=== PATIENT | female | born 1960 | race Caucasian/White ===

== ENCOUNTER 2019-03-28 13:04 | Outpatient (CLI) | payer OTHER, SELFPAY ==
--- NOTE | 2019-03-28 13:13 | XR_ITS ---
WS: [id number] RIGHT ELBOW: 3 VIEW(S) TECHNIQUE: AP, oblique and lateral. HISTORY: RIGHT ELBOW PAIN COMPARISON: 07/26/2012 No acute fractures or dislocation. No joint effusion. No soft tissue abnormality. XR/XR elbow RT min 3V* [id number] IMPRESSION: Normal RIGHT elbow.
== END 2019-03-28 13:05 | disposition home or self-care (01) ==
LOC: RADWPI 13:10
PROVIDERS: Family Provider Family Medicine; PCP Family Medicine; Visit Provider Emergency Medicine
DX: M25.521 Pain in right elbow (principal)
CPT/HCPCS: 73080

== ENCOUNTER 2019-03-31 05:48 | Emergency (ER) | payer OTHER, SELFPAY ==
[2019-03-31 05:58] VITALS: BP 110/61; PULSE 72; RESP 14; TEMP 36.6; O2SAT 100; BMI 20.9
[2019-03-31 06:13] VITALS: O2SAT 98
--- NOTE | 2019-03-31 06:14 | XR_ITS ---
WS: [id number] RIGHT ELBOW: 3 VIEW(S) TECHNIQUE: AP, oblique and lateral. HISTORY: fall, pain COMPARISON: None available. Limited evaluation of the elbow due to a known proximal RIGHT humeral fracture. No fracture is appreciated at the elbow. Cannot evaluate for joint effusion without acute lateral pro jection. No soft tissue abnormality. XR/XR elbow RT min 3V* [id number] IMPRESSION: 1. Limited radiographic positioning due to proximal humeral fracture. 2. No RIGHT elbow fracture or joint effusion is appreciated.
--- NOTE | 2019-03-31 06:14 | XR_ITS ---
WS: [id number] RIGHT HUMERUS: 2 VIEW(S) TECHNIQUE: AP and lateral. HISTORY: fall COMPARISON: None available. Comminuted fracture involving the proximal RIGHT humeral diaphysis. There is slight impaction but no significant separation. Numerous fracture lines are evident. No displacement of the humeral head from the glenoid. Mild AC joint and glenohumeral joint narrowing. No foreign bodies and visualized upper thorax is unremarkable. XR/[place] [id number] IMPRESSION: Comminuted minimally impacted fracture involving the proximal RIGHT humeral .
[2019-03-31 06:15] VITALS: PULSE 70; RESP 14; O2SAT 99
[2019-03-31 06:20] VITALS: PULSE 69; RESP 14
--- NOTE | 2019-03-31 06:20 | ED_ITS ---
HPI - Fall General: Chief Complaint: Fall Stated Complaint: FALL Time Seen by Provider: 03/31/19 06:13 History of Present Illness: HPI Narrative: 58yo female presents after a fall at home while walking outside. No LOC, no head injury, complaints of pain in the R upper arm and elbow. Associated symptoms-after fall: Denies abdominal pain or chest pain Review of Systems Const: Denies: fever, chills, body aches, change in appetite, fatigue or malaise ENMT: Denies: throat pain, ear pain, nasal discharge or nasal congestion Card: Denies: chest pain, edema, shortness of breath on exertion or shortness of breath when lying down Resp: Denies: shortness of breath, productive cough or non-productive cough GI: Denies: abdominal pain, nausea, vomiting, vomiting blood, coffee grounds in vomit, diarrhea, constipation, bloating, blood in stool or black tarry stool : Denies: flank pain, difficulty urinating, painful urination, urinary frequency or urinary urgency Skin/Breast: Denies: rash or itching PFSH ED PFSH: Statuses (acute, chronic, etc) shown below reflect problem list status as previously entered and may not be historically accurate Social History Smoking and tobacco status: former smoker Physical Exam Const: COMMON NORMALS: no apparent distress GENERAL APPEARANCE: cooperative and comfortable ORIENTATION/CONSCIOUSNESS: Yes awake, Yes oriented to person, Yes oriented to place and Yes oriented to time HENMT: COMMON NORMALS: normocephalic, head/scalp atraumatic, hearing grossly normal bilaterally, external ears normal, EAC's normal, TM's normal bilaterally, nasal mucous membranes and turbinates normal, moist oral mucous membranes and oropharynx normal HEAD & SCALP: normocephalic and atraumatic NOSE: nasal mucous membranes and turbinates normal EXTERNAL EAR: Yes external ears normal EXTERNAL AUDITORY CANAL: EAC's normal TYMPANIC MEMBRANE: TM's normal bilaterally Eye: COMMON NORMALS: PERRL, EOMs intact bilaterally, conjunctivae normal and no scleral icterus CONJUNCTIVA: Yes conjunctivae normal PUPIL: Yes PERRL Neck/C-Spine: COMMON NORMALS: full ROM, no lymphadenopathy, supple and no JVD Lymph: LYMPHATIC: no lymphadenopathy noted and no lymphedema noted Resp: COMMON NORMALS: normal respiratory effort, no retractions, no use of accessory muscles and clear to auscultation bilaterally AUSCULTATION: clear to auscultation bilaterally Cardio: COMMON NORMALS: no JVD, regular rate, regular rhythm and no murmurs RATE: regular rate RHYTHM: regular rhythm GI: COMMON NORMALS: soft to palpation and no hepatosplenomegaly AUSCULTATION: Yes normoactive bowel sounds PALPATION: Yes soft, No tender, No guarding and Yes no hepatosplenomegaly Extremity: COMMON NORMALS: normal capillary refill, no clubbing, cyanosis or edema, no calf tenderness and no pedal edema; negative for normal to inspection RIGHT UPPER EXTREMITY: Yes upper arm (Pain and deformity) Neuro: SENSORIUM/ORIENTATION: Yes oriented to person, Yes oriented to place and Yes oriented to time Skin: COMMON NORMALS: no rashes or lesions noted GENERAL SKIN EXAM: no rashes or lesions noted Course ED course: Reviewed findings with patient he has a proximal humerus fracture we will go ahead and discharge her home in a shoulder immobilizer set up for outpatient Ortho gave her pain medications return if has problems discussed usual course of care for proximal humerus fracture Vital Signs: Vital signs: Vital Signs Temperature 97.9 F 03/31/19 05:58 Pulse Rate 78 03/31/19 08:04 Respiratory Rate 16 03/31/19 08:04 Blood Pressure 103/78 03/31/19 08:04 Pulse Oximetry 99 03/31/19 08:04 Discharge Plan Discharge Patient Disposition: Home, Self-Care Clinical Impression: Fracture, humerus closed Qualifiers: Encounter type: initial encounter Humerus Location: shaft Fracture morphology: comminuted Fracture alignment: nondisplaced Laterality: right Qualified Code(s): S42.354A - Nondisplaced comminuted fracture of shaft of humerus, right arm, initial encounter for closed fracture Condition: Stable Prescriptions: New hydrocodone-acetaminophen 5-325 mg tablet 1 tab PO Q6H PRN (Reason: pain) Qty: 14 RF: 0 No Action nitroglycerin 0.1 mg/hr patch 24 hour 0.5 patch transdermal DAILY RF: 0 methenamine hippurate 1 gram tablet 1 g PO DAILY RF: 0 Duavee 0.45-20 mg tablet 1 tab PO DAILY RF: 0 Discharge Orders: Discharge Order (Routine); Ordered 01/23/20 Ordered By: Jaden Plummer Referrals: Ravi Coronado MD [Primary Care Provider] - Discharge Diet: Usual diet Discharge Activity: Limit activity as instructed Activity Restrictions/Additional Instructions: No use of the right hand. Remain in the shoulder immobilizer until instructed otherwise by orthopedics. Case management will call with referral to Ortho. Discharge Date/Time: 03/31/19 08:05 Coding Level of Care Code ED Workforce Development Program Director for Barbara Mayer
--- NOTE | 2019-03-31 06:39 | XR_ITS ---
WS: [id number] AC joints. Single AP view of the AC joints has been obtained. Very mild narrowing of the AC joints bilaterally. No separation or elevation or subluxation. Patient has a known proximal RIGHT humeral fracture. No weights will be given. [place]R/[place] [id number] IMPRESSION: No AC joint separation on this single AP film.
[2019-03-31] MEDS: HYDROcodone-acetaminophen 5-325 mg Tablet 1 TAB PO (06:58)
[2019-03-31] MEDS: morphine 4 mg/mL SDV 1 mL IM (07:37)
[2019-03-31 08:04] VITALS: BP 103/78; PULSE 78; RESP 16; O2SAT 99
--- NOTE | 2019-03-31 11:46 | DCPLANNER ---
bdc manager had message to schedule a follow up appointment for patient with ortho. bdc manager called the ortho clinic, spoke with Melania, gave clinic patients information. bdc manager was told that patients information would be printed and reviewed. Clinic will call ed case manager and patient with appointment information.
--- NOTE | 2019-04-06 15:04 | DCPLANNER ---
Patient had a follow up appointment scheduled for 04.06.19, patient did attend the appointment.
== END 2019-03-31 08:05 | disposition home or self-care (01) ==
PROVIDERS: Emergency Provider Family Medicine; Family Provider Family Medicine; PCP Family Medicine
DX: S42.354A Nondisplaced comminuted fracture of shaft of humerus, right arm, initial encounter for closed fracture (principal); W19.XXXA Unspecified fall, initial encounter; Z87.891 Personal history of nicotine dependence
CPT/HCPCS: 73050; 73060; 73080; 96372; 99281; J2270

== ENCOUNTER → 2019-04-06 15:06 | Outpatient (BNVA) | payer OTHER, SELFPAY | PROVIDERS: Family Provider Family Medicine; PCP Family Medicine; Referring Provider Family Medicine; Visit Provider Specialist | DX: S42.291A Other displaced fracture of upper end of right humerus, initial encounter for closed fracture (principal); X58.XXXA Exposure to other specified factors, initial encounter | CPT/HCPCS: 73030 ==

== ENCOUNTER → 2019-04-14 16:05 | Outpatient (BNVA) | payer OTHER, SELFPAY | PROVIDERS: Family Provider Family Medicine; PCP Family Medicine; Visit Provider Specialist | DX: S42.291A Other displaced fracture of upper end of right humerus, initial encounter for closed fracture (principal); X58.XXXA Exposure to other specified factors, initial encounter | CPT/HCPCS: 73030 ==

== ENCOUNTER → 2019-04-20 15:39 | Outpatient (BNVA) | payer OTHER, SELFPAY | PROVIDERS: Family Provider Family Medicine; PCP Family Medicine; Visit Provider Specialist | DX: S42.352A Displaced comminuted fracture of shaft of humerus, left arm, initial encounter for closed fracture (principal); X58.XXXA Exposure to other specified factors, initial encounter | CPT/HCPCS: 73030 ==

== ENCOUNTER → 2019-05-04 15:35 | Outpatient (BNVA) | payer OTHER, SELFPAY | PROVIDERS: Family Provider Family Medicine; PCP Family Medicine; Visit Provider Specialist | DX: S42.352A Displaced comminuted fracture of shaft of humerus, left arm, initial encounter for closed fracture (principal); X58.XXXA Exposure to other specified factors, initial encounter | CPT/HCPCS: 73030 ==

== ENCOUNTER → 2019-05-30 14:20 | Outpatient (BNVA) | payer OTHER, SELFPAY | PROVIDERS: Family Provider Family Medicine; PCP Family Medicine; Visit Provider Specialist | DX: S42.201A Unspecified fracture of upper end of right humerus, initial encounter for closed fracture (principal); X58.XXXA Exposure to other specified factors, initial encounter | CPT/HCPCS: 73030 ==

== ENCOUNTER 2019-06-02 12:32 | Outpatient (RCR) | payer OTHER, SELFPAY | END 2019-06-07 23:59 | disposition home or self-care (01) | LOC: SPT 12:32 | PROVIDERS: Family Provider Family Medicine; PCP Family Medicine; Referring Provider Specialist; Visit Provider Specialist | DX: S42.301D Unspecified fracture of shaft of humerus, right arm, subsequent encounter for fracture with routine healing (principal); X58.XXXD Exposure to other specified factors, subsequent encounter | CPT/HCPCS: 97110; 97162 ==

== ENCOUNTER 2019-06-08 06:00 | Outpatient (RCR) | payer OTHER, SELFPAY | END 2019-07-07 23:59 | disposition home or self-care (01) | LOC: SPT 06:00 | PROVIDERS: Family Provider Family Medicine; PCP Family Medicine; Referring Provider Specialist; Visit Provider Specialist | DX: S42.301D Unspecified fracture of shaft of humerus, right arm, subsequent encounter for fracture with routine healing (principal); X58.XXXD Exposure to other specified factors, subsequent encounter | CPT/HCPCS: 97110; G0283 ==

== ENCOUNTER → 2019-07-05 11:39 | Outpatient (BNVA) | payer OTHER, SELFPAY | PROVIDERS: Family Provider Family Medicine; PCP Family Medicine; Visit Provider Specialist | DX: T14.8XXA Other injury of unspecified body region, initial encounter (principal); S42.201A Unspecified fracture of upper end of right humerus, initial encounter for closed fracture; X58.XXXA Exposure to other specified factors, initial encounter | CPT/HCPCS: 73030 ==

== ENCOUNTER 2019-07-08 06:00 | Outpatient (RCR) | payer OTHER, SELFPAY | END 2019-08-07 23:59 | disposition home or self-care (01) | LOC: SPT 06:00 | PROVIDERS: Family Provider Family Medicine; PCP Family Medicine; Referring Provider Specialist; Visit Provider Specialist | DX: S42.301D Unspecified fracture of shaft of humerus, right arm, subsequent encounter for fracture with routine healing (principal); X58.XXXD Exposure to other specified factors, subsequent encounter | CPT/HCPCS: 97110 ==

== ENCOUNTER → 2019-07-12 09:24 | Outpatient (BNVA) | payer OTHER, SELFPAY | PROVIDERS: Family Provider Family Medicine; PCP Family Medicine; Visit Provider Urology | DX: N39.0 Urinary tract infection, site not specified (principal); N30.20 Other chronic cystitis without hematuria; N31.9 Neuromuscular dysfunction of bladder, unspecified | CPT/HCPCS: 81001 ==

== ENCOUNTER → 2020-09-19 14:17 | Outpatient (BNVA) | payer OTHER, SELFPAY | PROVIDERS: Family Provider Family Medicine; PCP Family Medicine; Visit Provider Urology | DX: N30.20 Other chronic cystitis without hematuria (principal); N31.9 Neuromuscular dysfunction of bladder, unspecified; R33.9 Retention of urine, unspecified | CPT/HCPCS: 81003 ==

== ENCOUNTER → 2021-09-19 10:58 | Outpatient (BNVA) | payer OTHER, SELFPAY | PROVIDERS: Family Provider Family Medicine; PCP Family Medicine; Visit Provider Nurse Practitioner Family | DX: N30.20 Other chronic cystitis without hematuria (principal); N31.9 Neuromuscular dysfunction of bladder, unspecified; R33.9 Retention of urine, unspecified | CPT/HCPCS: 81003; 87077; 87086; 87186 ==

== ENCOUNTER 2023-01-15 11:13 | Emergency (ER) | payer OTHER, SELFPAY ==
--- NOTE | 2023-01-15 11:15 | XR_ITS ---
WS: [id number] Right knee, 3 views, 01/15/2023 Clinical Data: trauma Comparison: None. Findings: No fractures or dislocations are seen. The joint spaces are normal. The patella is intact. The soft t issues are unremarkable. Impression: Negative right knee. Kellgren-Jude Classification: grade 0 (none): definite absence of x-ray changes of osteoarthritis
--- NOTE | 2023-01-15 11:15 | XR_ITS ---
WS: [id number] Left wrist, 3 views, 01/15/2023 Clinical Data: trauma Comparison: None. Findings: No fractures or dislocations are seen. The carpal bones are intact. There is no soft tissue swelling. The distal radius and ulna are not remarkable. Impression: Negative left wrist.
[2023-01-15 11:18] VITALS: BP 85/55; PULSE 95; RESP 16; TEMP 36.6; O2SAT 98; BMI 22.3
--- NOTE | 2023-01-15 11:51 | ED_ITS ---
HPI - Extremity Problem General: Chief complaint: Extremity Injury, Upper Stated complaint: left wrist, right knee injury Time Seen by Provider: 01/15/23 11:15 Source: patient Mode of arrival: ambulatory History of Present Illness: 62-year-old female who presents emergency room she was going into work yesterday and stumbled landed on an outstretched left hand and her right knee pain. She has some discomfort in both joints. She has been able to bear weight on the knee but is very uncomfortable no previous injury to the knee. She not strike her head did not lose consciousness. MD Complaint: joint pain Onset (ago): day(s) (1) Relieving factors: rest Exacerbating factors: weight bearing and walking Associated symptoms: Deny arthralgias, chest pain, fever(s), myalgias, rash or short of breath Review of Systems Const: Denies: fever(s) Card: Denies: chest pain Resp: Denies: dyspnea GI: Denies: abdominal pain : Denies: dysuria, urinary frequency or urinary urgency Musc: Denies: neck pain or back pain Skin/Breast: Denies: rash PFSH ED PFSH: Medical History Allergic rhinitis due to allergen Displaced comminuted fracture of shaft of humerus, left arm, initial encounter for closed fracture Hyperlipidemia Hypertension Incomplete bladder emptying URI with cough and congestion Surgical History H/O laparoscopy Hx of tonsillectomy Social History Smoking and tobacco/nicotine status: never used tobacco/nicotine Second hand smoke exposure: No Alcohol intake: never Substance/Drug Use: never Adopted: No Caregiver/support person: No Lives independently: No Household members: spouse Marital status: Current occupational status: employed Current gender identity: Female Female Reproductive History: Spontaneous abortions: No Physical Exam Const: GENERAL APPEARANCE: cooperative and comfortable ORIENTATION/CONSCIOUSNESS: Yes awake and Yes oriented to time; not oriented to person and not oriented to place HENMT: COMMON NORMALS: normocephalic, atraumatic and hearing grossly normal bilaterally HEAD & SCALP: normocephalic and atraumatic Extremity: OTHER: No abrasions to the skin of the hand or at the right knee there is no evidence of form 8 no low deep given distal instability or laxity. Neuro: SENSORIUM/ORIENTATION: No oriented to person, No oriented to place and Yes oriented to time Skin: COMMON NORMALS: no rashes or lesions noted GENERAL SKIN EXAM: no rashes or lesions noted Course Vital Signs: Vital signs: Vital Signs Temperature 97.9 F 01/15/23 11:18 Pulse Rate 83 01/15/23 11:58 Respiratory Rate 16 01/15/23 11:58 Blood Pressure 85/63 01/15/23 11:58 Pulse Oximetry 98 01/15/23 11:58 Oxygen Delivery Me thod Room Air 01/15/23 11:58 MDM - Extremity (Nontraumatic) Medical Decision Making No acute fractures. Suspect patient does have a knee sprain the rest seems rather mild is little difficult to assess the knee fully because of discomfort and a mild joint effusion recommend knee immobilizer and crutches patient does not feel like she is coordinated if it uses think she may actually be more likely to fall she prefers just to rest and elevate use ice and anti- inflammatories follow-up with primary care if not improving Medical Records I reviewed the patient's medical records. All radiology interpretation(s) finalized by discharge Discharge Plan Discharge Patient Disposition: Home Clinical Impression: Right knee sprain Condition: Stable Prescriptions: New diclofenac sodium 75 mg tablet,delayed release (DR/EC) 75 mg PO Q12H PRN (Reason: pain) Qty: 20 0RF No Action omega-3 fatty acids 1,000 mg capsule 1,000 mg PO DAILY ascorbic acid (vitamin C) 500 mg capsule PO Prempro 0.625-2.5 mg tablet 1 tab PO DAILY methenamine hippurate 1 gram tablet 1 g PO ONCE Rx Instructions: take 1000mg Vitamin C with each dose of METHENAMINE fluticasone propionate 50 mcg/actuation spray,suspension 1 spray intranasal BID Qty: 16 3RF Rx Instructions: administer into each nostril tramadol 50 mg tablet 50 mg PO BID PRN (Reason: pain) Qty: 60 5RF pregabalin [Lyrica] 25 mg capsule 25 mg PO BID Qty: 60 2RF diphenhydramine HCl [Benadryl] 25 mg capsule 25 mg PO .qhs PRN (Reason: allergy symptoms) Qty: 30 3RF Rx Instructions: 1 or 2 caps at bedtime as needed montelukast 10 mg tablet See Rx Instructions .ROUTE .COMPLEX Qty: 30 2RF Dose Instruction: TAKE 1 TABLET BY MOUTH EVERY DAY Rx Instructions: TAKE 1 TABLET BY MOUTH EVERY DAY Discharge Orders: Discharge ED (Routine); Ordered 01/15/23 Ordered By: Jaden Plummer Referrals: Akin Camilo, [Primary Care Provider] - Discharge Diet: Usual diet Discharge Activity: Increase activity as tolerated Patient Instructions: Opioid Safety, Pain Management Activity Restrictions/Additional Instructions: Thank you for choosing [facility] for your healthcare needs today. Please realize this is an emergency room and that we are providing you with a medical screening exam and this may not be complete and all inclusive of all the testing and or work up that you may need to determine your ailment or severity of your illness. It is very important that you follow up as instructed or that you return to the Emergency Department should you have concerns or if your condition changes or worsens in any way. If not improving follow-up with your primary care doctor to reevaluate if advanced imaging is required. Coding Level of Care Code ED Clothing Room Supervisor for Barbara Mayer
[2023-01-15 11:58] VITALS: BP 85/63; PULSE 83; RESP 16; O2SAT 98
== END 2023-01-15 12:45 | disposition home or self-care (01) ==
PROVIDERS: Emergency Provider Family Medicine; PCP Family Medicine
DX: S83.91XA Sprain of unspecified site of right knee, initial encounter (principal); E78.5 Hyperlipidemia, unspecified; I10 Essential (primary) hypertension; W01.0XXA Fall on same level from slipping, tripping and stumbling without subsequent striking against object, initial encounter
CPT/HCPCS: 73110; 73562; 99284

== ENCOUNTER → 2023-02-12 09:34 | Outpatient (BNVA) | payer OTHER, SELFPAY | PROVIDERS: PCP Family Medicine; Visit Provider Nurse Practitioner | DX: M25.532 Pain in left wrist (principal); M25.561 Pain in right knee; M65.4 Radial styloid tenosynovitis [de Quervain]; M77.8 Other enthesopathies, not elsewhere classified | CPT/HCPCS: 73110; 73560; 73565 ==

== ENCOUNTER 2023-02-12 10:59 | Outpatient (CLI) | payer OTHER, SELFPAY | END 2023-02-12 11:00 | disposition home or self-care (01) | LOC: SPT 11:00 | PROVIDERS: PCP Family Medicine; Visit Provider Nurse Practitioner | DX: Z46.89 Encounter for fitting and adjustment of other specified devices (principal); M25.532 Pain in left wrist; M65.4 Radial styloid tenosynovitis [de Quervain]; M25.561 Pain in right knee; M77.8 Other enthesopathies, not elsewhere classified | CPT/HCPCS: 97760; 99214; L1812; L3809 ==

== ENCOUNTER → 2023-02-23 13:42 | Outpatient (BNVA) | payer OTHER, SELFPAY | PROVIDERS: PCP Family Medicine; Visit Provider Nurse Practitioner | DX: M25.561 Pain in right knee (principal); M65.4 Radial styloid tenosynovitis [de Quervain]; M77.8 Other enthesopathies, not elsewhere classified | CPT/HCPCS: 73110; 73560; 73565; 99214 ==

== ENCOUNTER 2023-06-02 18:17 | Inpatient (IN) | payer MEDICARE, OTHER, SELFPAY ==
[2023-06-02] VITALS (8 sets, daily range): BP systolic 111–130; BP diastolic 61–79; PULSE 65–74; RESP 15–18; TEMP 36.5–36.7; O2SAT 92–98; BMI 24.3
--- NOTE | 2023-06-02 18:18 | XRR_ITS ---
PROCEDURE INFORMATION: Exam: XR Left Hip Exam date and time: 06/02/2023 6:30 PM Age: 63 years old Clinical indication: Injury or trauma; Fall; Blunt trauma (contusions or hematomas); Left; Hip TECHNIQUE: Imaging protocol: Radiologic exam of the left hip. Views: 2 or 3 views hip with pelvis when performed. COMPARISON: MR lumbar spine wo con* [id number] 07/27/2017 2:05 PM FINDINGS: Bones/joints: Comminuted overlapping and angulated intratrochanteric fracture of the left femur. Soft tissues: Unremarkable. XR/XR hip LT 2-3V wo/w pel* [id number] IMPRESSION: Comminuted overlapping and angulated intratrochanteric fracture of the left femur.
--- NOTE | 2023-06-02 18:27 | W.ED.FALL ---
HPI - Fall General: Chief Complaint: Fall Stated Complaint: Fall Time Seen by Provider: 06/02/23 18:18 Source: patient and EMS Mode of arrival: EMS Limitations: no limitations History of Present Illness: 63-year-old female states that she tripped on a rug and fell and struck her left hip. States this happened just prior to arrival states she been having severe pain in the hip unable to stand or ambulate. She denies any other injuries states she did hit her head but denies any headache she denies any neck pain she denies any loss conscious she is not on any blood thinners. Associated symptoms-after fall: Denies abdominal pain, chest pain, headache(s) or neck pain Review of Systems Const: Denies: fever(s), chills, body aches or change in appetite ENMT: Denies: throat pain or dental pain Card: Denies: chest pain Resp: Denies: dyspnea GI: Denies: abdominal pain, nausea, vomiting or diarrhea Musc: Reports: extremity pain; Denies: neck pain or back pain Skin/Breast: Denies: rash Neuro: Denies: headache(s) PFSH ED PFSH: Medical History Tendinitis of forearm Right anterior knee pain De Quervain's disease (tenosynovitis) Tendonitis of wrist, left Hypertension Hyperlipidemia URI with cough and congestion Allergic rhinitis due to allergen Incomplete bladder emptying Displaced comminuted fracture of shaft of humerus, left arm, initial encounter for closed fracture Surgical History Hx of tonsillectomy H/O laparoscopy Social History Smoking and tobacco/nicotine status: never used tobacco/nicotine Second hand smoke exposure: No Alcohol intake: never Substance/Drug Use: never Adopted: No Caregiver/support person: No Lives independently: No Household members: spouse Marital status: Current occupational status: employed Current gender identity: Female Female Reproductive History: Spontaneous abortions: No Physical Exam Const: COMMON NORMALS: no acute distress, patient oriented x3 and healthy appearing HENMT: COMMON NORMALS: normocephalic and atraumatic HEAD & SCALP: normocephalic and atraumatic Eye: COMMON NORMALS: Equal, round and reactive pupils present and EOMs intact bilaterally PUPIL: Yes Equal, round and reactive pupils present Neck/C-Spine: COMMON NORMALS: full ROM and supple CERVICAL SPINE: Yes cervical ROM normal and No Cervical spine tenderness Chest: COMMONS NORMALS: normal inspection of the chest Resp: COMMON NORMALS: normal respiratory effort Cardio: COMMON NORMALS: regular rate, regular rhythm and No murmurs present (Cardio) RATE: regular rate RHYTHM: regular rhythm GI: COMMON NORMALS: Normal to inspection, nondistended, normoactive bowel sounds present, Soft to palpation, non-tender and no masses PALPATION: Yes Soft to palpation Extremity: NARRATIVE EXTREMITY EXAM: tenderness to left hip Neuro: COMMON NORMALS: patient oriented x3, moves all extremities and no focal motor deficits Psych: COMMON NORMALS: mental status grossly normal, Normal thought process present and cooperative THOUGHT PROCESS: Normal thought process present Skin: COMMON NORMALS: no rashes or lesions noted and no wounds GENERAL SKIN EXAM: no rashes or lesions noted Course Vital Signs: Vital signs: Vital Signs Temperature 97.7 F 06/02/23 18:20 Pulse Rate 68 06/02/23 18:20 Respiratory Rate 16 06/02/23 18:20 Blood Pressure 130/79 06/02/23 18:20 Pulse Oximetry 97 06/02/23 18:20 MDM - Fall Medical Decision Making Patient presents here with left hip fracture from a fall no other injuries noted I spoke to hospitalist all orthopedics and will admit. Medical Records I reviewed the patient's medical records. All radiology interpretation(s) finalized by discharge Discharge Plan Discharge Patient Disposition: Admitted As Inpatient Clinical Impression: Closed fracture of left hip, Fall Condition: Stable Prescriptions: No Action omega-3 fatty acids 1,000 mg capsule 1,000 mg PO DAILY ascorbic acid (vitamin C) 500 mg capsule PO Prempro 0.625-2.5 mg tablet 1 tab PO DAILY fluticasone propionate 50 mcg/actuation spray,suspension 1 spray intranasal BID Qty: 16 3RF Rx Instructions: administer into each nostril tramadol 50 mg tablet 50 mg PO BID PRN (Reason: pain) Qty: 60 5RF pregabalin [Lyrica] 25 mg capsule 25 mg PO BID Qty: 60 2RF celecoxib [Celebrex] 100 mg capsule 100 mg PO BID Qty: 60 0RF (DME) left thumb spika See Rx Instructions .Route .MEDSUPPLY Qty: 1 0RF Rx Instructions: As directed (DME) right hinged knee brace See Rx Instructions .Route .MEDSUPPLY Qty: 1 0RF Rx Instructions: As directed diphenhydramine HCl [Benadryl] 25 mg capsule 25 mg PO .qhs PRN (Reason: allergy symptoms) Qty: 30 3RF Rx Instructions: 1 or 2 caps at bedtime as needed montelukast 10 mg tablet See Rx Instructions .ROUTE .COMPLEX Qty: 30 2RF Dose Instruction: TAKE 1 TABLET BY MOUTH EVERY DAY Rx Instructions: TAKE 1 TABLET BY MOUTH EVERY DAY methenamine hippurate 1 gram tablet See Rx Instructions .ROUTE .COMPLEX Qty: 180 3RF Dose Instruction: take one TABLET BY MOUTH TWICE DAILY * take 1000mg of vitamin c with each DOSE of methenamine * Rx Instructions: take one TABLET BY MOUTH TWICE DAILY * take 1000mg of vitamin c with each DOSE of methenamine * diclofenac sodium 75 mg tablet,delayed release (DR/EC) 75 mg PO Q12H PRN (Reason: pain) Qty: 20 0RF Referrals: Akin Camilo DO [Primary Care Provider] - Coding Level of Care Code ED Lead Systems Analyst for Barbara Mayer
--- NOTE | 2023-06-02 18:36 | XRR_ITS ---
PROCEDURE INFORMATION: Exam: XR Chest Exam date and time: 06/02/2023 6:37 PM Age: 63 years old Clinical indication: Injury or trauma; Fall; Blunt trauma (contusions or hematomas) TECHNIQUE: Imaging protocol: Radiologic exam of the chest. Views: 1 view. COMPARISON: CR XR shoulder RT min 2V* [id number] 07/05/2019 11:44 AM FINDINGS: Lungs: Unremarkable. No consolidation. Pleural spaces: Unremarkable. No pleural effusion. No pneumothorax. Heart/Mediastinum: Unremarkable. No cardiomegaly. Bones/joints: Unremarkable. XR/XR chest 1V portable [id number] IMPRESSION: No acute findings.
[2023-06-02] MEDS: ondansetron 2 mg/ML SDV 2 mL 4 MG IVP (18:46)
[2023-06-02] MEDS: HYDROmorphone 1 mg/mL INJ 1 mL IVP ×2 (18:47→20:31)
--- NOTE | 2023-06-02 18:49 | ECG_ITS ---
[facility] Test Date: 2023-06-02 Pat Name: Consuelo Barajas Department: Room: Gender: Female Registered Nurse Obstetrics: : 1960 Requested By: Meagan Erickson Order Number: [id number] Simone MD: Matt Serrano M.D. Measurements Intervals [place] Rate: 69 P: 65 IA: 130 QRS: 74 QRSD: 93 T: 46 QT: 389 QTc: 419 Interpretive Statements SINUS RHYTHM No previous ECG available for comparison Electronically Signed On 06-03-2023 23:48:23 CDT by Matt Serrano M.D. [email or web address]
--- NOTE | 2023-06-02 19:10 | P.HP_ITS ---
Providers/Chief Complaint 2 Primary Care Provider: Akin Camilo DO Chief Complaint: Fall History of Present Illness Consuelo Barajas is a 63 year old female without significant past medical history sustaining a mechanical fall at home. Patient her and son, stating that today she is not sure what happened but endorsing tripping over carpet rug, in the ER she was diagnosed with hip fracture, Dr. Hussein consulted. Patient is not endorsing any history of coronary disease or CHF. She is not diabetic. Independent for daily activities. Patient is stating that her bone scan showed osteopenia but she does not take calcium or vitamin D, Review of Systems 2 Const: Denies: fever(s) Eyes: Denies: change in vision ENMT: Denies: throat pain Card: Denies: chest pain Resp: Denies: dyspnea GI: Denies: abdominal pain : Denies: flank pain Musc: Reports: back pain and joint pain Skin/Breast: Denies: rash Medications/Allergies Home Medications Medication Instructions Recorded Confirmed Last Taken Type ascorbic acid (vitamin C) 500 mg mg PO 04/06/19 02/23/23 Unknown History capsule omega-3 fatty acids 1,000 mg 1,000 mg PO DAILY 07/12/19 02/23/23 Unknown History capsule conj estrogen-medroxyprogesterone 1 tab PO DAILY 09/19/21 02/23/23 Unknown History 0.625 mg-2.5 mg tablet (Prempro) fluticasone propionate 50 1 spray intranasal BID allergies 01/16/22 02/23/23 Unknown Rx mcg/actuation nasal #16 grams spray,suspension diphenhydramine HCl 25 mg capsule 25 mg PO .qhs PRN allergy symptoms 02/27/22 02/23/23 Unknown Rx (Benadryl) #30 caps pregabalin 25 mg capsule (Lyrica) 25 mg PO BID #60 caps 07/07/22 02/23/23 Unknown Rx tramadol 50 mg tablet 50 mg PO BID PRN pain #60 tabs 07/07/22 02/23/23 Unknown Rx montelukast 10 mg tablet See Rx Instructions .Route 10/27/22 02/23/23 Unknown Rx .COMPLEX #30 tabs diclofenac sodium 75 mg 75 mg PO Q12H PRN pain #20 tabs 01/15/23 02/23/23 Unknown Rx tablet,delayed release methenamine hippurate 1 gram tablet See Rx Instructions .Route 02/10/23 02/23/23 Unknown Rx .COMPLEX #180 tabs celecoxib 100 mg capsule (Celebrex) 100 mg PO BID #60 caps 02/12/23 02/23/23 Unknown Rx left thumb spika #1 ea 02/12/23 02/23/23 Unknown Rx right hinged knee brace #1 ea 02/12/23 02/23/23 Unknown Rx Allergies Allergy/AdvReac Type Severity Reaction Status Date / Time No Known Allergies Allergy Verified 02/23/23 14:11 PFSH Acute 2 PFSH: Medical History Tendinitis of forearm Right anterior knee pain De Quervain's disease (tenosynovitis) Tendonitis of wrist, left Hypertension Hyperlipidemia URI with cough and congestion Allergic rhinitis due to allergen Incomplete bladder emptying Displaced comminuted fracture of shaft of humerus, left arm, initial encounter for closed fracture Surgical History Hx of tonsillectomy H/O laparoscopy Social History Smoking and tobacco/nicotine status: never used tobacco/nicotine Second hand smoke exposure: No Alcohol intake: never Substance/Drug Use: never Adopted: No Caregiver/support person: No Lives independently: No Household members: spouse Marital status: Current occupational status: employed Current gender identity: Female Female Reproductive History: Spontaneous abortions: No Vitals/I&O/Wt Last Vital Signs Temp 97.7 F 06/02/23 18:20 Pulse 68 06/02/23 18:20 Resp 16 06/02/23 18:20 BP 130/79 06/02/23 18:20 Pulse Ox 97 06/02/23 18:20 Weight last 48 hrs Weight 73.482 kg Physical Exam 2 Narrative: Patient is laying supine Currently dehydrated Awake and alert No active chest pain or shortness of breath Doing well on room air Hemodynamic stable Nonfocal neuroexam Pleasant cooperative Appears stated age Data 06/02/23 19:08 06/02/23 19:08 A&P Assessment and plan (1) Closed fracture of left hip: (2) Fall: Plan Hip fracture Mechanical fall No syncope No history of coronary disease or CHF Patient is not diabetic Bedrest Palmer catheter placed Continue IV fluids Check UA No need of antibiotics at this point Hemodynamically stable Dr. Bassett consulted N.p.o. at this point DVT prophylaxis: SCDs Opioids along bowel regimen Full code RCRI class I No preoperative cardiac workup is indicated at this point Attestations 2 Medical Necessity Statement*: More than 2 midnights anticipated for management of hip fracture Diagnoses Closed fracture of left hip S72.002A Fall W19.XXXA
[2023-06-02 19:31] LABS: Basophils # 0.1 10^3/uL (0.0-0.1); Basophils % 0.9 %; Eosinophils # 0.2 10^3/uL (0.0-0.8); Eosinophils % 3.6 %; Hematocrit 37.9 % (36-47); Lymphocytes % 29.7 %; Mean Corpuscular HGB Conc 32.7 g/dL (30-55); Mean Corpuscular Hemoglobin 30.2 pg (27-33); Mean Corpuscular Volume 92.4 fl (85-98); Mean Platelet Volume 9.6 fL (7.4-10.4); Monocytes # 0.5 10^3/uL (0.2-0.9); Monocytes % 7.6 %; Neutrophils # 3.86 10^3/uL (1.8-7.7); Neutrophils % 57.9 %; Nucleated Red Blood Cells % 0 %; Platelet Count 227 10^3/cmm (157-399); Red Cell Distribution Width 12.2 % (12.1-15.1); White Blood Count 6.67 10^3/uL (3.29-11.43)
[2023-06-02 19:51] LABS: Alanine Aminotransferase 8 U/L (0-33); Albumin Level 3.9 g/dL (3.5-5.2); Alkaline Phosphatase 93 U/L (35-105); Anion Gap 12.7 (5-19); Aspartate Amino Transferase 15 U/L (0-32); Blood Urea Nitrogen 21 mg/dL (8-23); Calcium 9.2 mg/dL (8.5-10.5); Carbon Dioxide 27 mmol/L (22-29); Chloride 104 mmol/L (98-107); Creatinine Clr Calc Pharmacy 79.5467; Globulin 2.3 g/dL (1.3-4.6); Glomerular Filtration Rate 100.3 mL/min (90-130); Glucose 102 mg/dL (65-115); Osmolality Calculated 293 mOsm/kg (285-295); Potassium 3.7 mmol/L (3.5-5.1); Sodium 140 mmol/L (136-145); Total Bilirubin 0.3 mg/dL (0.15-1.2); Total Protein 6.2 g/dL (6.6-8.7)
[2023-06-02 20:06] LABS: INR 1.01 (0.8-1.2)
[2023-06-02] MEDS: HYDROmorphone 1 mg/mL INJ 1 mL 0.400000000000000022 MG IVP (23:10)
[2023-06-02] MEDS: sodium chloride 0.9% 1,000 ML 75 ML IV (23:14)
[2023-06-03] VITALS (17 sets, daily range): BP systolic 95–121; BP diastolic 49–69; PULSE 71–106; RESP 16–18; TEMP 36.1–37.4; O2SAT 92–99; BMI 24.8
--- NOTE | 2023-06-03 | XR_ITS ---
WS: [id number] Exam: XR hip LT 1V wo/w pel [id number] Date/Time of Exam: 06/03/2023 12:00 AM Reason For Exam: MARCO PICS Intraoperative AP and lateral images of the LEFT hip and parts of the LEFT femur are submitted. The images depict internal fixation involving a comminuted intertrochanteric fracture of the LEFT hip . An impaction screw in long intramedullary roxanne stabilize the fracture. Alignment appears satisfactor y for healing.
[2023-06-03 00:55] LABS: Thyroid Stimulating Hormone 2.18 uIU/mL (0.27-4.20)
[2023-06-03 02:02] LABS: Vitamin B12 256 pg/mL (232-1245)
[2023-06-03 04:56] LABS: Basophils # 0.1 10^3/uL (0.0-0.1); Basophils % 0.6 %; Eosinophils # 0.1 10^3/uL (0.0-0.8); Eosinophils % 1.4 %; Hematocrit 32.3 % (36-47); Lymphocytes # 1.6 10^3/uL (0.8-4.8); Lymphocytes % 17.7 %; Mean Corpuscular HGB Conc 33.7 g/dL (30-55); Mean Corpuscular Hemoglobin 30.5 pg (27-33); Mean Corpuscular Volume 90.5 fl (85-98); Mean Platelet Volume 9.4 fL (7.4-10.4); Monocytes # 0.7 10^3/uL (0.2-0.9); Monocytes % 8.3 %; Neutrophils # 6.28 10^3/uL (1.8-7.7); Neutrophils % 71.8 %; Nucleated Red Blood Cells % 0 %; Platelet Count 190 10^3/cmm (157-399); Red Blood Count 3.57 10^6/uL (3.85-5.65); Red Cell Distribution Width 12.3 % (12.1-15.1); White Blood Count 8.75 10^3/uL (3.29-11.43)
[2023-06-03 05:08] LABS: Chloride 107 mmol/L (98-107); Potassium 4.1 mmol/L (3.5-5.1); Sodium 141 mmol/L (136-145)
[2023-06-03 05:30] LABS: Anion Gap 12.1 (5-19); Blood Urea Nitrogen 20 mg/dL (8-23); Calcium 8.5 mg/dL (8.5-10.5); Carbon Dioxide 26 mmol/L (22-29); Creatinine Clr Calc Pharmacy 82.7997; Glomerular Filtration Rate 123.8 mL/min (90-130); Glucose 113 mg/dL (65-115); Osmolality Calculated 295 mOsm/kg (285-295); Phosphorus 3.1 mg/dL (2.5-4.5)
[2023-06-03] MEDS: HYDROmorphone 1 mg/mL INJ 1 mL 0.400000000000000022 MG IVP (05:59)
[2023-06-03 08:05] LABS: Protein Urine 1+ (Negative); Specific Gravity, Urine 1.025 (1.005-1.030); Urine Appearance Hazy (CLEAR); Urine Color Yellow (Yellow); pH Urine 6 (5-7)
[2023-06-03 08:06] LABS: Add Urine Microscopic? YES; Bilirubin Urine 1+ (Negative); Blood Urine 3+ (Negative); Glucose Urine UA Norm (Normal); Ketones Urine Negative (Negative); Leukocyte Esterase Urine 2+ (Negative); Nitrate Urine Negative (Negative); Transitional Epi Cells Urine 0-4 /hpf; Urobilinogen Urine 1 mg/dL (Negative); WBC Urine 25-40 /hpf (0-5)
[2023-06-03 08:07] LABS: Add Urine Culture? Yes; Bacteria Urine TRACE /hpf; Mucus Urine TRACE /hpf
[2023-06-03] MEDS: cefTRIAXone 1,000 MG in sodium chloride 0.9% (plus) 50 ML 100 MG IV (09:27)
[2023-06-03] MEDS: sennosides-docusate Tablet 1 TAB PO (09:27)
[2023-06-03] MEDS: calcium carb-vit d 600mg/400unit 1 Tablet 1 EACH PO (09:28)
[2023-06-03] MEDS: morphine IR 15 mg Tablet PO (09:36)
[2023-06-03] MEDS: HYDROmorphone 1 mg/mL INJ 1 mL 0.5 MG IVP ×3 (11:03→20:47)
[2023-06-03] MEDS: sodium chloride 0.9% 1,000 ML 75 ML IV (11:49)
--- NOTE | 2023-06-03 13:28 | P.CONIM_ITS ---
Providers/Reason For Consult 2 Consulting Physician/Specialty*: Tere Bassett MD - Orthopedics Reason for Consult*: Left intertrochanteric hip fracture Requesting Physician: Dr. Meagan Erickson Attending Physician: Chandler Spence MD Primary Care Provider: Akin Camilo DO History of Present Illness History of Present Illness Consuelo Barajas is a 63 year old female who fell while at the [employer] last evening. She is not certain whether she tripped over the carpet or if it became irregular when she tripped. She was brought to the emergency department where she was diagnosed with an intertrochanteric hip fracture. She was admitted to hospitalist team, and was made n.p.o. for surgical intervention this morning. Review of Systems 2 Const: Denies: fever(s), chills, body aches or change in appetite Eyes: Denies: change in vision ENMT: Denies: throat pain or dental pain Card: Denies: chest pain Resp: Denies: dyspnea GI: Denies: abdominal pain, nausea, vomiting or diarrhea : Denies: flank pain Musc: Reports: back pain, extremity pain and joint pain; Denies: neck pain Skin/Breast: Denies: rash Neuro: Denies: headache(s) Medications/Allergies Home Medications Medication Instructions Recorded Confirmed Last Taken Type ascorbic acid (vitamin C) 500 mg 1,000 mg PO 1XD 04/06/19 06/03/23 06/02/23 07:00 History capsule omega-3 fatty acids 1,000 mg 1,000 mg PO DAILY 07/12/19 06/03/23 06/02/23 07:00 History capsule conj estrogen-medroxyprogesterone 1 tab PO DAILY 09/19/21 06/03/23 06/02/23 07:00 History 0.625 mg-2.5 mg tablet (Prempro) tramadol 50 mg tablet 50 mg PO BID PRN pain #60 tabs 07/07/22 06/03/23 05/20/23 07:00 Rx methenamine hippurate 1 gram tablet 1 g PO 1XD 06/03/23 06/03/23 06/02/23 07:00 History Allergies Allergy/AdvReac Type Severity Reaction Status Date / Time No Known Allergies Allergy Verified 02/23/23 14:11 Current Medications Generic Name Dose Route Start Last Admin Trade Name Freq PRN Reason Stop Dose Admin Calcium Carbonate 1 each 06/03/23 09:00 06/03/23 09:28 Calcium Carb-Vit D 600mg/400unit 1 Tablet PO 1 each BID GERRI Administration Hydromorphone HCl 0.5 mg 06/03/23 10:40 06/03/23 11:03 Hydromorphone 1 Mg/Ml Inj 1 Ml IVP 0.5 mg Q4H PRN Administration hip pain Sodium Chloride 1,000 mls @ 75 mls/hr 06/02/23 20:55 06/03/23 11:49 Sodium Chloride 0.9% IV 75 mls/hr .[id number] GERRI Administration Ceftriaxone Sodium 1,000 mg/ 50 mls @ 100 mls/hr 06/03/23 09:00 06/03/23 09:27 Sodium Chloride IV 100 mls/hr Q24H GERRI Administration Protocol Senna/Docusate Sodium 1 tab 06/03/23 09:00 06/03/23 09:27 Sennosides-Docusate Tablet PO 1 tab DAILY GERRI Administration PFSH Acute 2 PFSH: Medical History Tendinitis of forearm Right anterior knee pain De Quervain's disease (tenosynovitis) Tendonitis of wrist, left Hypertension Hyperlipidemia URI with cough and congestion Allergic rhinitis due to allergen Incomplete bladder emptying Displaced comminuted fracture of shaft of humerus, left arm, initial encounter for closed fracture Surgical History Hx of tonsillectomy H/O laparoscopy Social History Smoking and tobacco/nicotine status: never used tobacco/nicotine Second hand smoke exposure: No Alcohol intake: never Substance/Drug Use: never Adopted: No Caregiver/support person: No Lives independently: No Household members: spouse Marital status: Current occupational status: employed Current gender identity: Female Female Reproductive History: Spontaneous abortions: No Dietary Habits: Caffeine: Yes Vitals/I&O/Wt Last Vital Signs Temp 98.3 F 06/03/23 11:00 Pulse 79 06/03/23 11:00 Resp 18 03/27/24 11:00 BP 106/65 06/03/23 11:00 Pulse Ox 92 06/03/23 11:00 O2 Del Method Room Air 06/03/23 11:00 06/02/23 06/03/23 06/03/23 22:59 06:59 14:59 Intake Total 0 / 0 943.75 / 943.75 Output Total 550 / 550 Balance -550 / -550 943.75 / 943.75 Weight last 48 hrs Weight 178 lb 3.2 oz Weight 174 lb 8 oz Weight 162 lb Physical Exam 2 Const: COMMON NORMALS: no acute distress, average body habitus, patient oriented x3 and alert GENERAL APPEARANCE: cooperative and comfortable O RIENTATION/CONSCIOUSNESS: Yes awake HENMT: COMMON NORMALS: normocephalic and atraumatic HEAD & SCALP: n ormocephalic and atraumatic Eye: GENERAL EYE: appearance normal, both eyes and all related structures Chest: COMMONS NORMALS: normal inspection of the chest Resp: COMMON NORMALS: normal respiratory effort EFFORT & INSPECTION: Yes able to speak in complete sentences and Yes symmetric chest movement Extremity: LEFT LOWER EXTREMITY: Yes hip joint Left hip: Yes inspection (No significant bruising), Yes ROM (Not evaluated secondary to fracture) and Yes neurovascular exam (Intact distally) Neuro: COMMON NORMALS: patient oriented x3 SENSORIUM/ORIENTATION: Yes alert Psych: COMMON NORMALS: mental status grossly normal APPEARANCE: Yes grossly normal ATTITUDE: Yes calm and Yes engaged ATTENTION/CONCENTRATION: Yes attention grossly intact Skin: COMMON NORMALS: no rashes or lesions noted GENERAL SKIN EXAM: no rashes or lesions noted Urinary Catheter Management: Palmer: Cath Placed During This Visit: yes Reason for Continuing Indwelling Catheter: Perioperative Use in Selected Surgeries Urinary Catheter Date of Insertion: 06/02/23 Urinary Catheter Time of Insertion: 23:30 Data 06/03/23 04:39 06/03/23 04:39 Xray Ortho: My impression: X-rays were obtained yesterday. These images demonstrate there is a subtrochanteric hip fracture extending into the intertrochanteric area as well. This is significantly shortened and comminuted. There is no evidence of cystic or blastic lesions in the area. Findings are consistent with intertrochanteric fracture with subtrochanteric component. A&P Assessment and plan (1) Closed intertrochanteric fracture of left hip: Patient was admitted last evening through the emergency department. She was noted to have a subtrochanteric fracture with intertrochanteric components. She was admitted to the floor under the hospitalist team with plans being made to proceed with open reduction internal fixation with a long gamma trochanteric nail. The patient was seen in her room. Risks and complications were discussed with the patient. Consents were signed, and questions were answered. Qualifiers: Encounter type: initial encounter Fracture alignment: displaced Qualified Code(s): S72.142A - Displaced intertrochanteric fracture of left femur, initial encounter for closed fracture (2) Subtrochanteric fracture of left femur: See above Qualifiers: Encounter type: initial encounter Fracture type: closed Fracture alignment: displaced Qualified Code(s): S72.22XA - Displaced subtrochanteric fracture of left femur, initial encounter for closed fracture Consult Attestations 2 Medical Necessity Statement: Per hospitalist team Coding Level of Care Code Acute Code for [facility] Fwd Diagnoses Closed displaced intertrochanteric fracture of left femur, initial encounter S72.142A Encounter type: initial encounter Fracture alignment: displaced Closed displaced subtrochanteric fracture of left femur, initial encounter S72.22XA Encounter type: initial encounter Fracture type: closed Fracture alignment: displaced
--- NOTE | 2023-06-03 15:21 | P.PN_ITS ---
Subjective 2 Subjective: Patient was seen this morning, her pain is under control denies any fevers, chills, no chest pain Vitals/I&O/Wt Last Vital Signs Temp 98.3 F 06/03/23 11:00 Pulse 79 06/03/23 11:00 Resp 18 06/03/23 11:00 BP 106/65 06/03/23 11:00 Pulse Ox 92 06/03/23 11:00 O2 Del Method Room Air 06/03/23 11:00 06/03/23 06/03/23 06/03/23 06:59 14:59 22:59 Intake Total 0 / 0 943.75 / 943.75 Output Total 550 / 550 Balance -550 / -550 943.75 / 943.75 Weight last 48 hrs Weight 80.83 kg Weight 79.152 kg Weight 73.482 kg Physical Exam 2 Const: COMMON NORMALS: no acute distress and patient oriented x3 Resp: COMMON NORMALS: normal respiratory effort, No retractions, No use of accessory muscles and clear to auscultation bilaterally AUSCULTATION: clear to auscultation bilaterally Cardio: COMMON NORMALS: regular rate, regular rhythm, S1 normal heart sound present and S2 normal heart sound present RATE: regular rate RHYTHM: r egular rhythm HEART SOUNDS: S1 normal heart sound present and S2 normal heart sound present GI: COMMON NORMALS: Normal to inspection, nondistended, normoactive bowel sounds present and non-tender Extremity: COMMON NORMALS: no pedal edema Neuro: COMMON NORMALS: patient oriented x3 Psych: COMMON NORMALS: mental status grossly normal Urinary Catheter Management: Palmer: Cath Placed During This Visit: yes Reason for Continuing Indwelling Catheter: Perioperative Use in Selected Surgeries Urinary Catheter Date of Insertion: 06/02/23 Urinary Catheter Time of Insertion: 23:30 Data 06/03/23 04:39 06/03/23 04:39 A&P Assessment and plan (1) Closed fracture of left hip: (2) Fall: (3) UTI (urinary tract infection): Plan L Hip fracture IMPRESSION: Comminuted overlapping and angulated intratrochanteric fracture of the left femur. Mechanical fall No syncope No history of coronary disease or CHF Patient is not diabetic Bedrest Palmer catheter placed Continue IV fluids Check UA No need of antibiotics at this point Hemodynamically stable Dr. Bassett consulted N.p.o. at this point DVT prophylaxis: SCDs Opioids along bowel regimen UTI, Rocephin Full code RCRI class I No preoperative cardiac workup is indicated at this point Attestations 2 Medical Necessity Statement*: Patient requires hospitalization for hip fracture Diagnoses Closed fracture of left hip S72.002A Fall W19.XXXA UTI (urinary tract infection) N39.0
--- NOTE | 2023-06-03 16:16 | P.ANESASSM_ITS ---
Pre-Anesthetic Assessment Height/Weight: Height 1.8 m Weight 80.83 kg Temp Pulse Resp BP Pulse Ox O2 Del Method 99.3 F 82 16 109/68 93 Room Air 06/03/23 15:29 06/03/23 15:29 06/03/23 15:29 06/03/23 15:29 06/03/23 15:29 06/03/23 15:29 Preop Diagnosis: Left intertrochanteric hip fracture Operation Date: 06/03/23 14:45 Proposed Procedures p Trochanteric Femoral Nail(Left) - Tere Bassett MD Familial anesthetic complications: none Was Beta Dre taken within 24 hours: N/A Was Clonidine taken within 24 hours: N/A Last intake: Intake Last Liquid Date 06/02/23 Last Liquid Time 17:30 Last Solid Date 06/02/23 Last Solid Time 17:30 Social No alcohol and No tobacco Exam alert, oriented x 3, clear to auscultation bilaterally and regular rate & rhythm Airway Mallampati: Class II Dentition: full Anesthetic Plan ASA status: 1 Anesthesia: General Risk of > 500 ml blood loss (7ml/kg in children): No Medications/Allergies Home Medications Medication Instructions Recorded Confirmed Last Taken Type ascorbic acid (vitamin C) 500 mg 1,000 mg PO 1XD 04/06/19 06/03/23 06/02/23 07:00 History capsule omega-3 fatty acids 1,000 mg 1,000 mg PO DAILY 07/12/19 06/03/23 06/02/23 07:00 History capsule conj estrogen-medroxyprogesterone 1 tab PO DAILY 09/19/21 06/03/23 06/02/23 07:00 History 0.625 mg-2.5 mg tablet (Prempro) tramadol 50 mg tablet 50 mg PO BID PRN pain #60 tabs 07/07/22 06/03/23 05/20/23 07:00 Rx methenamine hippurate 1 gram tablet 1 g PO 1XD 06/03/23 06/03/23 06/02/23 07:00 History Allergies Allergy/AdvReac Type Severity Reaction Status Date / Time No Known Allergies Allergy Verified 02/23/23 14:11 Current Medications Generic Name Dose Route Start Last Admin Trade Name Freq PRN Reason Stop Dose Admin Calcium Carbonate 1 each 06/03/23 09:00 06/03/23 09:28 Calcium Carb-Vit D 600mg/400unit 1 Tablet PO 1 each BID GERRI Administration Hydromorphone HCl 0.5 mg 06/03/23 10:40 06/03/23 15:25 Hydromorphone 1 Mg/Ml Inj 1 Ml IVP 0.5 mg Q4H PRN Administration hip pain Sodium Chloride 1,000 mls @ 75 mls/hr 06/02/23 20:55 06/03/23 11:49 Sodium Chloride 0.9% IV 75 mls/hr .[id number] GERRI Administration Ceftriaxone Sodium 1,000 mg/ 50 mls @ 100 mls/hr 06/03/23 09:00 06/03/23 09:27 Sodium Chloride IV 100 mls/hr Q24H GERRI Administration Protocol Senna/Docusate Sodium 1 tab 06/03/23 09:00 06/03/23 09:27 Sennosides-Docusate Tablet PO 1 tab DAILY GERRI Administration PFSH Anesthesia Medical History Tendinitis of forearm Right anterior knee pain De Quervain's disease (tenosynovitis) Tendonitis of wrist, left Hypertension Hyperlipidemia URI with cough and congestion Allergic rhinitis due to allergen Incomplete bladder emptying Displaced comminuted fracture of shaft of humerus, left arm, initial encounter for closed fracture Surgical History Hx of tonsillectomy H/O laparoscopy Social History Smoking and tobacco/nicotine status: never used tobacco/nicotine Second hand smoke exposure: No Alcohol intake: never Substance/Drug Use: never Adopted: No Caregiver/support person: No Lives independently: No Household members: spouse Marital status: Current occupational status: employed Current gender identity: Female Female Reproductive History Spontaneous abortions: No Data Anesthesia 06/03/23 04:39 06/03/23 04:39 Short CBC 06/02/23 06/03/23 Range/Units 19:08 04:39 WBC 6.67 8.75 (3.29-11.43) 10^3/uL Hgb 12.40 10.90 L (11.27-16.99) g/dL Hct 37.9 32.3 L (36-47) % MCV 92.4 90.5 (85-98) fl Plt Count 227 190 (157-399) 10^3/cmm Neut % (Auto) 57.9 71.8 % Neut # (Auto) 3.86 6.28 (1.8-7.7) 10^3/uL BMP 06/02/23 06/03/23 19:08 04:39 Sodium 140 141 Potassium 3.7 4.1 Chloride 104 107 Carbon Dioxide 27 26 BUN 21 20 Creatinine 0.6 0.5 Glucose 102 113 Calcium 9.2 8.5 Liver Function 06/02/23 Range/Units 19:08 Total Bilirubin 0.3 (0.15-1.2) mg/dL AST 15 (0-32) U/L ALT 8 (0-33) U/L Alkaline Phosphatase 93 (35-105) U/L Albumin 3.9 (3.5-5.2) g/dL Urine 06/02/23 06/03/23 Range/Units 05:58 05:58 Urine Color Cancelled Yellow Urine Appearance Cancelled Hazy A Urine pH Cancelled 6 Ur Specific [place] Cancelled 1.025 Urine Protein Cancelled 1+ H Urine Glucose (UA) Cancelled Norm Urine Ketones Cancelled Negative Urine Nitrate Cancelled Negative Urine Bilirubin Cancelled 1+ H Ur Leukocyte Esterase Cancelled 2+ H Urine RBC 5-10 H (0-2) /hpf Urine WBC 25-40 H (0-5) /hpf Coags 06/02/23 19:08 PT 13.70 INR 1.01 Cardiac Studies: 2 No Data to Display
[2023-06-03] MEDS: acetaminophen 1,000 MG/100 ML PIGGYBACK 400 MG IV (16:40)
[2023-06-03] MEDS: sodium chloride 0.9% 1,000 ML 30 ML IV (16:41)
[2023-06-03] MEDS: CELEcoxib 200 mg Capsule 400 MG PO (16:42)
[2023-06-03] MEDS: gabapentin 300 mg Capsule PO (16:42)
[2023-06-03] MEDS: ceFAZolin 2,000 MG in sodium chloride 0.9% (plus) 50 ML 100 MG IV (17:55)
[2023-06-03] MEDS: ceFAZolin 1,000 mg SDV 1000 MG IRRIGATION (18:37)
[2023-06-03] MEDS: lidocaine-epi 1% 20 mL INJ INJECTION (19:44)
--- NOTE | 2023-06-03 20:29 | PM.OP ---
Operative Report Date of procedure: June 03, 2023 Pre-op diagnosis: Left intertrochanteric hip and subtrochanteric femur fractures Post-op diagnosis: Left intertrochanteric hip and subtrochanteric femur fractures Post-op findings: Comminuted subtrochanteric hip fracture with intertrochanteric extension Procedure done: Open reduction internal fixation left intertrochanteric hip and subtrochanteric femur fractures with long gamma 3 trochanteric nail Implants: [place] gamma 3 system with a long trochanteric nail left size 11 mm x 420 mm x 125 degrees and a proximal lag screw size 10.5 mm x 100 mm with a distal locking screw size 5 mm x 52.5 mm Specimens removed/disposition: None Surgeon: Tere Bassett MD Clinical Laboratory Manager: None Anesthesia: General (Per LMA) Estimated blood loss (mL): 75 IV fluids (mL): 1,050 (800 mL crystalloid +250 mL albumin) Urine output (mL): 550 Complications: None Findings: Extremely comminuted displaced intertrochanteric hip close subtrochanteric femur fracture left lower extremity Condition: stable Disposition: PACU (Then return to floor for postoperative rehabilitation and pain management) Brief History: Consuelo Barajas is a 63 year old female who fell while at the [employer] last evening. She is not certain whether she tripped over the carpet or if it became irregular when she tripped. She was brought to the emergency department where she was diagnosed with an intertrochanteric hip fracture. Upon my review, she was also noted to have significant subtrochanteric femur fracture involvement as well. She was admitted to hospitalist team, and this evening, she underwent open reduction internal fixation with a long trochanteric nail. Risks and complications have been discussed with her. Consents were signed preoperatively and questions were answered. Procedure: Patient is brought to the operating theater. After undergoing adequate general anesthesia per LMA, the patient was transferred to the fracture table, positioned on the table and fluoroscopic guidance obtained throughout the surgical procedure. Prior to the commencement of the surgical procedure, a surgical pause was performed. Reduction of the fracture was accomplished with manipulation. At the time of the surgical pause, we confirmed the site and side of surgery as well as preoperative surgical markings and appropriate and timely administration of IV antibiotics, vancomycin 1500 mg. Availability of equipment was also confirmed. Fluoroscopy was used to confirm the fracture was appropriately reduced in both AP and lateral planes. An incision was then made slightly above the greater trochanter to allow access to the greater trochanter. An awl was used to enter the greater trochanter and a guidewire was subsequently placed. Once the guidewire was confirmed to be in appropriate position in AP and lateral planes, reaming was accomplished over this to allow for the proximal diameter of the nail. Short guidewire was then removed, and a ball-tipped long wire was passed through the fracture to the knee. Appropriate position of the long guidewire was confirmed in AP and lateral planes. Reaming over this long guidewire was accomplished to a 13 mm reamer to allow for placement of an 11 mm long gamma 3 nail. The size 11 mm x 420 mm x 125 degree gamma 3 trochanteric nail was placed into appropriate position with positioning being confirmed in AP and lateral planes on the x-ray. It passed without difficulty. Guidewire was then passed through the jigging system into the femoral head. We wanted to be center or slightly inferior and posterior to center. Guidewire was placed into appropriate position. Once the guidewire was in appropriate position and this position was confirmed by x-ray, the guidewire was measured and we chose a 100 mm lag screw. We reamed to allow for the lag screw to be placed. The 10.5 mm x 100 mm lag screw was then passed into the femoral head through the trochanteric nail. This was passed uneventfully and again position was confirmed in AP and lateral planes. Compression was obtained under fluoroscopic guidance. The set screw was then placed in position, tightened completely and subsequently backed off one-quarter turn. The construct was left in position, and attention was directed distally. We confirmed appropriate placement of the components, and we removed the jigging system. A perfect [place] technique was then used distally to place a distal screw through the nail in the static position. This was accomplished without difficulty. Position of the screw was confirmed in AP and lateral planes. Attention was then directed to closure. The hip was copiously irrigated with normal saline with antibiotics. Following this it was dried and closed. Subcutaneous tissues were closed with a combination of 0 Vicryl and 2-0 Monocryl, and the skin was closed with a continuous 3-0 Monocryl subcuticular stitch. This was then covered with Dermabond and OpSite. The patient was removed from the fracture table and returned to recovery in satisfactory condition. The patient will be discharged to the floor for postoperative rehabilitation and pain management. There were no specimens obtained. Related Problem List Diagnoses (1) Closed intertrochanteric fracture of left hip: (2) Subtrochanteric fracture of left femur:
--- NOTE | 2023-06-03 20:40 | ANE.PACU2 ---
Inpatient post-anesthesia follow up: Airway intact: Yes Vital signs: Temperature 98.8 F Pulse Rate 75 Respiratory Rate 20 Blood Pressure 88/50 Pulse Oximetry 92 Oxygen Delivery Me thod Room Air Oxygen Flow Rate Fraction of Inspir ed Oxygen Hydration adequate: Yes Nausea and vomiting: No Pain level: 1 Mental status: Baseline
[2023-06-03] MEDS: chlorhexidine gluconate 0.12% Btl 473 mL 30 ML MUCOUS MEM (21:36)
[2023-06-03] MEDS: acetaminophen 500 mg Tablet PO (21:44)
[2023-06-03] MEDS: oxyCODONE 5 mg IR Tab/Cap PO (23:37)
[2023-06-04] VITALS (13 sets, daily range): BP systolic 67–107; BP diastolic 42–64; PULSE 75–95; RESP 15–20; TEMP 36.5–37.5; O2SAT 92–98
[2023-06-04] MEDS: ceFAZolin 2,000 MG in sodium chloride 0.9% (plus) 50 ML 100 MG IV ×3 (02:08→18:43)
[2023-06-04] MEDS: sodium chloride 0.9% 1,000 ML 75 ML IV (04:26)
[2023-06-04 04:59] LABS: Hematocrit 28.1 % (36-47); Lymphocytes # 0.7 10^3/uL (0.8-4.8); Mean Corpuscular HGB Conc 31.3 g/dL (30-55); Mean Corpuscular Hemoglobin 29.9 pg (27-33); Mean Corpuscular Volume 95.6 fl (85-98); Mean Platelet Volume 9.7 fL (7.4-10.4); Monocytes # 0.6 10^3/uL (0.2-0.9); Monocytes % 7.1 %; Neutrophils # 6.58 10^3/uL (1.8-7.7); Neutrophils % 83.5 %; Nucleated Red Blood Cells % 0 %; Platelet Count 149 10^3/cmm (157-399); Red Blood Count 2.94 10^6/uL (3.85-5.65); Red Cell Distribution Width 12.2 % (12.1-15.1); White Blood Count 7.88 10^3/uL (3.29-11.43)
[2023-06-04 05:20] LABS: Anion Gap 11.3 (5-19); Blood Urea Nitrogen 13 mg/dL (8-23); Calcium 7.8 mg/dL (8.5-10.5); Carbon Dioxide 23 mmol/L (22-29); Chloride 108 mmol/L (98-107); Creatinine Clr Calc Pharmacy 82.7997; Glomerular Filtration Rate 123.8 mL/min (90-130); Glucose 116 mg/dL (65-115); Osmolality Calculated 287 mOsm/kg (285-295); Potassium 4.3 mmol/L (3.5-5.1); Sodium 138 mmol/L (136-145)
[2023-06-04] MEDS: oxyCODONE 5 mg IR Tab/Cap PO ×2 (06:05→18:44)
[2023-06-04] MEDS: CELEcoxib 200 mg Capsule PO ×2 (06:05→18:43)
[2023-06-04] MEDS: iron polysaccharide complex 150 mg Capsule PO ×2 (08:05→18:43)
[2023-06-04] MEDS: cefTRIAXone 1,000 MG in sodium chloride 0.9% (plus) 50 ML 100 MG IV (08:05)
[2023-06-04] MEDS: calcium carb-vit d 600mg/400unit 1 Tablet 1 EACH PO ×2 (08:05→18:43)
[2023-06-04] MEDS: sennosides-docusate Tablet 1 TAB PO (08:05)
[2023-06-04] MEDS: aspirin 325 mg EC Tablet PO (08:05)
[2023-06-04] MEDS: chlorhexidine gluconate 0.12% Btl 473 mL 30 ML MUCOUS MEM ×4 (08:06→21:53)
[2023-06-04] MEDS: mupirocin oint 22 gm 1 APPLIC NASAL ×2 (08:22→18:49)
--- NOTE | 2023-06-04 13:18 | ECG_ITS ---
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 Measurements Intervals [place] Rate: 69 P: 51 NE: 121 QRS: 61 QRSD: 91 T: 40 QT: 359 QTc: 387 Interpretive Statements SINUS RHYTHM Compared to ECG 06/02/2023 18:49:59 No significant changes Electronically Signed On 06-04-2023 16:13:56 CDT by Justen Gupta M.D. [id number]
--- NOTE | 2023-06-04 13:46 | PM.PN ---
Subjective Subjective: The patient has started to work with physical therapy, but she has had some hypotension. This is limited her ability to participate with physical therapy. Medications: Reviewed: Yes Vitals/I&O/Wt Last Vital Signs Temp 97.8 F 06/04/23 11:57 Pulse 78 06/04/23 11:58 Resp 20 H 06/04/23 11:57 BP 91/56 06/04/23 11:58 Pulse Ox 96 06/04/23 11:57 O2 Del Method Room Air 06/04/23 11:57 06/03/23 06/04/23 06/04/23 22:59 06:59 14:59 Intake Total 200 / 1143.75 1050 / 2193.75 820.5 / 820.5 Output Total 1325 / 1325 Balance -1125 / -181.25 1050 / 868.75 820.5 / 820.5 Weight last 48 hrs Weight 178 lb Weight 178 lb 3.2 oz Weight 174 lb 8 oz Weight 162 lb Physical Exam Const: COMMON NORMALS: no acute distress, average body habitus, patient oriented x3 and alert GENERAL APPEARANCE: cooperative and comfortable ORIENTATION/CONSCIOUSNESS: Yes awake HENMT: COMMON NORMALS: normocephalic and atraumatic HEAD & SCALP: normocephalic and atraumatic Eye: GENERAL EYE: appearance normal, both eyes and all related structures Chest: COMMONS NORMALS: normal inspection of the chest Resp: COMMON NORMALS: normal respiratory effort EFFORT & INSPECTION: Yes able to speak in complete sentences and Yes symmetric chest movement Extremity: LEFT LOWER EXTREMITY: Yes hip joint (Thigh is soft and nontender. Minimal ecchymosis.) Left hip: Yes neurovascular exam (Intact distally.) Neuro: COMMON NORMALS: patient oriented x3 SENSORIUM/ORIENTATION: Yes alert Psych: COMMON NORMALS: mental status grossly normal APPEARANCE: Yes grossly normal ATTITUDE: Yes calm and Yes engaged ATTENTION/CONCENTRATION: Yes attention grossly intact Skin: COMMON NORMALS: no rashes or lesions noted GENERAL SKIN EXAM: no rashes or lesions noted Urinary Catheter Management: Palmer: Cath Placed During This Visit: yes Reason for Continuing Indwelling Catheter: Acute Urinary Retention or Obstruction Urinary Catheter Date of Insertion: 06/02/23 Urinary Catheter Time of Insertion: 23:30 Data 06/05/23 12:12 06/05/23 05:10 Micro: Microbiology 06/03/23 05:58 Urine Culture - Preliminary Urine,Clean Catch A&P Assessment and plan (1) Closed intertrochanteric fracture of left hip: Patient underwent open reduction internal fixation of a subtrochanteric and intertrochanteric left hip fracture. Patient tolerated the procedure well. She has had some hypotension which is interfered with her ability to proceed with physical therapy. Plans are made for her discharge to home, but she will require further therapies prior to this discharge. Qualifiers: Encounter type: initial encounter Fracture alignment: displaced Qualified Code(s): S72.142A - Displaced intertrochanteric fracture of left femur, initial encounter for closed fracture (2) Subtrochanteric fracture of left femur: See above Qualifiers: Encounter type: initial encounter Fracture type: closed Fracture alignment: displaced Qualified Code(s): S72.22XA - Displaced subtrochanteric fracture of left femur, initial encounter for closed fracture Attestations Medical Necessity Statement*: Per hospitalist team. Coding Level of Care Code Acute Code for [facility] Fwd Diagnoses Closed displaced intertrochanteric fracture of left femur, initial encounter S72.142A Encounter type: initial encounter Fracture alignment: displaced Closed displaced subtrochanteric fracture of left femur, initial encounter S72.22XA Encounter type: initial encounter Fracture type: closed Fracture alignment: displaced
--- NOTE | 2023-06-04 15:08 | ECG_ITS ---
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 Measurements Intervals [place] Rate: 79 P: 50 [place]: 122 QRS: 62 QRSD: 89 T: 37 QT: 346 QTc: 397 Interpretive Statements SINUS RHYTHM NONSPECIFIC T-WAVE ABNORMALITY Compared to ECG 06/04/2023 13:18:08 T-wave abnormality now present Electronically Signed On 06-05-2023 8:39:16 CDT by Justen Gupta M.D. [id number] f
[2023-06-04 15:09] LABS: Basophils % 0.4 %; Eosinophils # 0.2 10^3/uL (0.0-0.8); Eosinophils % 1.7 %; Hematocrit 27.5 % (36-47); Lymphocytes # 1.9 10^3/uL (0.8-4.8); Lymphocytes % 18.6 %; Mean Corpuscular HGB Conc 32.4 g/dL (30-55); Mean Corpuscular Hemoglobin 30.1 pg (27-33); Mean Corpuscular Volume 92.9 fl (85-98); Mean Platelet Volume 9.7 fL (7.4-10.4); Monocytes # 0.8 10^3/uL (0.2-0.9); Monocytes % 8.2 %; Neutrophils # 7.12 10^3/uL (1.8-7.7); Neutrophils % 70.7 %; Nucleated Red Blood Cells % 0 %; Platelet Count 146 10^3/cmm (157-399); Red Blood Count 2.96 10^6/uL (3.85-5.65); Red Cell Distribution Width 12.3 % (12.1-15.1); White Blood Count 10.07 10^3/uL (3.29-11.43)
[2023-06-04 15:33] LABS: Troponin(5th) Baseline < 6 ng/L (0-10)
[2023-06-04 15:38] LABS: Alanine Aminotransferase 6 U/L (0-33); Albumin Level 3.2 g/dL (3.5-5.2); Alkaline Phosphatase 61 U/L (35-105); Aspartate Amino Transferase 15 U/L (0-32); Blood Urea Nitrogen 14 mg/dL (8-23); C Reactive Protein 82.3 mg/L (0.0-4.9); Calcium 8.2 mg/dL (8.5-10.5); Carbon Dioxide 23 mmol/L (22-29); Chloride 108 mmol/L (98-107); Creatinine Clr Calc Pharmacy 82.7595; Globulin 2.4 g/dL (1.3-4.6); Glomerular Filtration Rate 100.3 mL/min (90-130); Glucose 103 mg/dL (65-115); Osmolality Calculated 291 mOsm/kg (285-295); Sodium 140 mmol/L (136-145); Total Bilirubin 0.2 mg/dL (0.15-1.2); Total Protein 5.6 g/dL (6.6-8.7)
--- NOTE | 2023-06-04 15:44 | P.PN_ITS ---
Subjective 2 Subjective: Patient was seen this morning, she is sitting up in a chair, she tells me that her pain is well-controlled, I discussed her orthostatic hypotension, patient profoundly orthostatic, blood pressure upon standing up 76/47, discussed continue IV fluids, hemoglobin has dropped 8.8 will monitor, iron studies, continue IV antibiotics for UTI, she is agreeable Vitals/I&O/Wt Last Vital Signs Temp 97.8 F 06/04/23 11:57 Pulse 78 06/04/23 11:58 Resp 20 H 06/04/23 11:57 BP 91/56 06/04/23 11:58 Pulse Ox 96 06/04/23 11:57 O2 Del Method Room Air 06/04/23 11:57 06/04/23 06/04/23 06/04/23 06:59 14:59 22:59 Intake Total 1050 / 2193.75 1060.5 / 1060.5 Balance 1050 / 868.75 1060.5 / 1060.5 Weight last 48 hrs Weight 80.739 kg Weight 80.83 kg Weight 79.152 kg Weight 73.482 kg Physical Exam 2 Const: COMMON NORMALS: no acute distress and patient oriented x3 Resp: COMMON NORMALS: normal respiratory effort, No retractions, No use of accessory muscles and clear to auscultation bilaterally AUSCULTATION: clear to auscultation bilaterally Cardio: COMMON NORMALS: regular rate, regular rhythm, S1 normal heart sound present and S2 normal heart sound present RATE: regular rate RHYTHM: r egular rhythm HEART SOUNDS: S1 normal heart sound present and S2 normal heart sound present GI: COMMON NORMALS: Normal to inspection, nondistended, normoactive bowel sounds present and non-tender Extremity: COMMON NORMALS: no pedal edema Neuro: COMMON NORMALS: patient oriented x3 Psych: COMMON NORMALS: mental status grossly normal Urinary Catheter Management: Palmer: Cath Placed During This Visit: yes Reason for Continuing Indwelling Catheter: Acute Urinary Retention or Obstruction Urinary Catheter Date of Insertion: 06/02/23 Urinary Catheter Time of Insertion: 23:30 Data 06/04/23 14:55 06/04/23 14:55 Micro: Microbiology 06/03/23 05:58 Urine Culture - Preliminary Urine,Clean Catch A&P Assessment and plan (1) Closed fracture of left hip: (2) Fall: (3) UTI (urinary tract infection): (4) Orthostatic hypotension: (5) Postoperative anemia: Plan L Hip fracture IMPRESSION: Comminuted overlapping and angulated intratrochanteric fracture of the left femur. Mechanical fall ? Status post surgical intervention No history of coronary disease or CHF Patient is not diabetic Bedrest Palmer catheter removed Continue IV fluids UA with evidence of UTI Dr. Bassett consulted DVT prophylaxis: SCDs, Lovenox Opioids along bowel regimen UTI, Rocephin ? Profound orthostatic hypotension, blood pressures dropping to 70s over 40s upon standing up continue IV hydration, monitor hemoglobin, lactic acid, CRP, Pro-Andrea, cortisol level, TSH ? Postoperative anemia hemoglobin 8.8, monitor Full code RCRI class I No preoperative cardiac workup is indicated at this point Attestations 2 Medical Necessity Statement*: Patient requires hospitalization for hip fracture, now with postoperative anemia, and orthostatic hypotension requiring IV fluids, clinical monitoring as inpatient, UTI Diagnoses Closed fracture of left hip S72.002A Fall W19.XXXA UTI (urinary tract infection) N39.0 Orthostatic hypotension I95.1 Postoperative anemia D64.9
[2023-06-04 15:45] LABS: Procalcitonin 0.09 ng/mL (0-0.5)
[2023-06-04 15:46] LABS: Cortisol Random 1.96 ug/dL (2.47-19.5)
[2023-06-04 16:23] LABS: Ferritin 518 ng/mL (15-150); Iron 23 ug/dL (37-145)
[2023-06-04] MEDS: sodium chloride 0.9% 1,000 ML 100 ML IV (16:42)
--- NOTE | 2023-06-04 17:13 | ECG_ITS ---
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 Measurements Intervals [place] Rate: 96 P: 81 [place]: 96 QRS: 70 QRSD: 88 T: -10 QT: 312 QTc: 394 Interpretive Statements SINUS RHYTHM WITH SHORT WI INTERVAL NONSPECIFIC ST & T-WAVE ABNORMALITY Compared to ECG 06/04/2023 13:18:08 Short WI interval now present T-wave abnormality now present Electronically Signed On 06-05-2023 8:38:47 CDT by Justen Gupta M.D. [id number]
[2023-06-04 19:30] LABS: Troponin 5 2HR Delta 0.00001 ABS# (0-10)
[2023-06-04] MEDS: enoxaparin 40 mg/0.4 mL Syringe SUBCUT (21:53)
[2023-06-04 22:21] LABS: Troponin 5 6HR 6.51 ng/L (0-10); Troponin 5 6HR Delta 0.51001 ng/L (0-12)
[2023-06-05] MEDS: sodium chloride 0.9% 1,000 ML 100 ML IV (02:36)
[2023-06-05 04:00] VITALS: BP 97/60; PULSE 84; RESP 18; TEMP 36.4; O2SAT 94
[2023-06-05 05:57] LABS: Basophils % 0.3 %; Eosinophils # 0.3 10^3/uL (0.0-0.8); Eosinophils % 4.5 %; Hematocrit 23.6 % (36-47); Lymphocytes # 1.7 10^3/uL (0.8-4.8); Lymphocytes % 26.3 %; Mean Corpuscular HGB Conc 33.1 g/dL (30-55); Mean Corpuscular Hemoglobin 30.8 pg (27-33); Mean Corpuscular Volume 93.3 fl (85-98); Mean Platelet Volume 10.3 fL (7.4-10.4); Monocytes # 0.6 10^3/uL (0.2-0.9); Monocytes % 9.8 %; Neutrophils # 3.81 10^3/uL (1.8-7.7); Neutrophils % 58.6 %; Nucleated Red Blood Cells % 0 %; Platelet Count 138 10^3/cmm (157-399); Red Blood Count 2.53 10^6/uL (3.85-5.65); Red Cell Distribution Width 12.5 % (12.1-15.1)
[2023-06-05] MEDS: CELEcoxib 200 mg Capsule PO (06:07)
[2023-06-05 06:18] LABS: Alanine Aminotransferase < 5 U/L (0-33); Albumin Level 2.8 g/dL (3.5-5.2); Alkaline Phosphatase 51 U/L (35-105); Anion Gap 9.8 (5-19); Aspartate Amino Transferase 14 U/L (0-32); Blood Urea Nitrogen 9 mg/dL (8-23); Calcium 8.1 mg/dL (8.5-10.5); Carbon Dioxide 26 mmol/L (22-29); Chloride 110 mmol/L (98-107); Creatinine Clr Calc Pharmacy 82.9728; Globulin 2.1 g/dL (1.3-4.6); Glomerular Filtration Rate 160.2 mL/min (90-130); Glucose 90 mg/dL (65-115); Osmolality Calculated 292 mOsm/kg (285-295); Potassium 3.8 mmol/L (3.5-5.1); Sodium 142 mmol/L (136-145); Total Bilirubin 0.3 mg/dL (0.15-1.2); Total Protein 4.9 g/dL (6.6-8.7)
[2023-06-05 08:00] VITALS: BP 94/58; PULSE 90; RESP 15; TEMP 36.6; O2SAT 93
[2023-06-05] MEDS: iron polysaccharide complex 150 mg Capsule PO (08:28)
[2023-06-05] MEDS: chlorhexidine gluconate 0.12% Btl 473 mL 30 ML MUCOUS MEM (08:28)
[2023-06-05] MEDS: mupirocin oint 22 gm 1 APPLIC NASAL (08:28)
[2023-06-05] MEDS: sennosides-docusate Tablet 1 TAB PO (08:28)
[2023-06-05] MEDS: cefTRIAXone 1,000 MG in sodium chloride 0.9% (plus) 50 ML 100 MG IV (08:28)
[2023-06-05] MEDS: calcium carb-vit d 600mg/400unit 1 Tablet 1 EACH PO (08:28)
[2023-06-05] MEDS: aspirin 325 mg EC Tablet PO (08:28)
[2023-06-05 09:33] LABS: Cortisol Random 4.41 ug/dL (2.47-19.5)
[2023-06-05 09:35] VITALS: PULSE 96; RESP 16; O2SAT 95
--- NOTE | 2023-06-05 11:39 | PC.SOCIAL ---
IMM Update pg 2 of IMM updated and reviewed w/ patient. Copy provided and copy dated, initialed and placed in chart.
[2023-06-05 12:00] VITALS: BP 92/59; PULSE 91; RESP 17; TEMP 36.8; O2SAT 94
[2023-06-05 12:29] LABS: Basophils % 0.4 %; Eosinophils # 0.3 10^3/uL (0.0-0.8); Eosinophils % 2.9 %; Hematocrit 26.7 % (36-47); Lymphocytes % 11.5 %; Mean Corpuscular HGB Conc 31.8 g/dL (30-55); Mean Corpuscular Hemoglobin 30.2 pg (27-33); Mean Platelet Volume 9.8 fL (7.4-10.4); Monocytes # 0.7 10^3/uL (0.2-0.9); Monocytes % 8.4 %; Neutrophils # 6.49 10^3/uL (1.8-7.7); Neutrophils % 76.4 %; Nucleated Red Blood Cells % 0 %; Platelet Count 157 10^3/cmm (157-399); Red Blood Count 2.81 10^6/uL (3.85-5.65); Red Cell Distribution Width 12.3 % (12.1-15.1); White Blood Count 8.49 10^3/uL (3.29-11.43)
--- NOTE | 2023-06-05 13:32 | CTR_ITS ---
PROCEDURE INFORMATION: Exam: CT Abdomen And Pelvis Without Contrast Exam date and time: 06/05/2023 2:08 PM Age: 63 years old Clinical indication: Abdominal pain; Prior surgery; Surgery date: 3-7 days post-operative; Surgery type: Lt hip; Additional info: Hypotension, anemia, R/O retoperitoneal bleed TECHNIQUE: Imaging protocol: Computed tomography of the abdomen and pelvis without contrast. Radiation optimization: All CT scans at this facility use at least one of these dose optimization techniques: automated exposure control; mA and/or kV adjustment per patient size (includes targeted exams where dose is matched to clinical indication); or iterative reconstruction. COMPARISON: OT XR hip LT 1V wo/w pel [id number] 06/03/2023 5:23 PM RADIATION DOSE METRICS: Total DLP (mGy-cm): 643.23 FINDINGS: Lungs: Mild basilar scar versus atelectasis. Pleural spaces: Trace bilateral pleural effusions. Liver: Indeterminate 6 mm right hepatic lobe hypodensity on series 4, image 18. Gallbladder and bile ducts: No significant gallbladder pathology. No biliary dilatation. Pancreas: No significant pancreatic pathology. Spleen: No significant splenic pathology. Adrenal glands: No significant adrenal pathology. Kidneys and ureters: There is a right upper retroperitoneal cystic structure measuring up to 9 cm contacting posterior segment of the right hepatic lobe, upper pole right kidney and the right adrenal gland most likely representing exophytic right renal cortical cysts with benign characteristics. Left kidney is unremarkable. Stomach and bowel: Moderate amount of colonic stool. Appendix: Appendix within normal limits. Intraperitoneal space: Tiny amount of free pelvic fluid. Vasculature: No abdominal aortic aneurysm. Lymph nodes: No evidence of lymphadenopathy. Urinary bladder: Unremarkable urinary bladder. Reproductive: No significant uterine pathology. No significant adnexal pathology. Bones/joints: Features of recent hardware fixation of comminuted intertrochanteric fracture noted. Postoperative changes in the adjacent soft tissues are present. No well-defined fluid collection is noted given limitations of noncontrast technique. Areas of soft tissue emphysema are present consistent with residua of surgery. Although there is some mild asymmetric enlargement of the left iliacus muscle there are no findings suspicious for significant retroperitoneal hemorrhage as clinically questioned. Soft tissues: See Bones/joints finding. CT/CT abdomen pelvis wo con [id number] IMPRESSION: 1. No evidence of retroperitoneal hemorrhage as clinically questioned. 2. Features of recent right proximal hip fracture fixation within normal limits. 3. Trace bilateral pleural effusions and ascites and other minor findings described above. COMMENTS: Consistent with the [employer]'s Incidental Findings Committee white paper (J Am Candace Radiol 2018): Any incidental renal lesion less than 1 cm or classified as too small to characterize, or any incidental cystic renal lesion characterized as simple-appearing, is likely benign. No follow-up imaging is recommended for these lesions per consensus recommendations based on imaging criteria.
--- NOTE | 2023-06-05 13:53 | P.PN_ITS ---
Subjective 2 Subjective: Patient is seen in her room, and she is feeling much better today. H&H is diminished, but she is hemodynamically stable. She states she is feeling well and would like to be discharged to home. Medications: Reviewed: Yes Vitals/I&O/Wt Last Vital Signs Temp 98.3 F 06/05/23 12:00 Pulse 91 06/05/23 12:00 Resp 17 06/05/23 12:00 BP 92/59 06/05/23 12:00 Pulse Ox 94 06/05/23 12:00 O2 Del Method Room Air 06/05/23 12:00 06/04/23 06/05/23 06/05/23 22:59 06:59 14:59 Intake Total 1260 / 2370.5 1020 / 3390.5 1421.667 / 1421.667 Output Total 450 / 450 900 / 900 Balance 1260 / 2370.5 570 / 2940.5 521.667 / 521.667 Weight last 48 hrs Weight 179 lb 1 oz Weight 178 lb Physical Exam 2 Const: COMMON NORMALS: no acute distress, average body habitus, patient oriented x3 and alert GENERAL APPEARANCE: cooperative and comfortable O RIENTATION/CONSCIOUSNESS: Yes awake HENMT: COMMON NORMALS: normocephalic and atraumatic HEAD & SCALP: n ormocephalic and atraumatic Eye: GENERAL EYE: appearance normal, both eyes and all related structures Chest: COMMONS NORMALS: normal inspection of the chest Resp: COMMON NORMALS: normal respiratory effort EFFORT & INSPECTION: Yes able to speak in complete sentences and Yes symmetric chest movement Extremity: LEFT LOWER EXTREMITY: Yes hip joint Left hip: Yes inspection (Thigh remains soft with no ecchymosis), Yes palpation (No tenderness), Yes ROM (Not evaluated) and Yes neurovascular exam (Intact distally with no evidence of DVT) Neuro: COMMON NORMALS: patient oriented x3 SENSORIUM/ORIENTATION: Yes alert Psych: COMMON NORMALS: mental status grossly normal APPEARANCE: Yes grossly normal ATTITUDE: Yes calm and Yes engaged ATTENTION/CONCENTRATION: Yes attention grossly intact Skin: COMMON NORMALS: no rashes or lesions noted GENERAL SKIN EXAM: no rashes or lesions noted Urinary Catheter Management: Palmer: Cath Placed During This Visit: yes, but has since been removed by the nurse Reason for Continuing Indwelling Catheter: Decision to DC Catheter Urinary Catheter Date of Insertion: 06/02/23 Urinary Catheter Time of Insertion: 23:30 Date Urinary Catheter Removed: 06/05/23 Time Urinary Catheter Discontinued: 10:57 Data 06/05/23 12:12 06/05/23 05:10 Micro: Microbiology 06/03/23 05:58 Urine Culture - Final Urine,Clean Catch A&P Assessment and plan (1) Closed intertrochanteric fracture of left hip: Patient underwent open reduction internal fixation of a subtrochanteric and intertrochanteric left hip fracture. Patient tolerated the procedure well. Patient has had hypotension associated with probable postoperative anemia. She is asymptomatic with regards to dizziness. She is able to participate with physical therapy and feels ready to be discharged home. I am in agreement with this discharge. Qualifiers: Encounter type: initial encounter Fracture alignment: displaced Qualified Code(s): S72.142A - Displaced intertrochanteric fracture of left femur, initial encounter for closed fracture (2) Subtrochanteric fracture of left femur: See above Qualifiers: Encounter type: initial encounter Fracture type: closed Fracture alignment: displaced Qualified Code(s): S72.22XA - Displaced subtrochanteric fracture of left femur, initial encounter for closed fracture Attestations 2 Medical Necessity Statement*: Awaiting medical stabilization for discharge to home. Coding Level of Care Code Acute Code for [facility] Fwd Diagnoses Closed displaced intertrochanteric fracture of left femur, initial encounter S72.142A Encounter type: initial encounter Fracture alignment: displaced Closed displaced subtrochanteric fracture of left femur, initial encounter S72.22XA Encounter type: initial encounter Fracture type: closed Fracture alignment: displaced
[2023-06-05] MEDS: midodrine 5 mg TABLET PO (14:45)
[2023-06-05 14:47] VITALS: RESP 16
[2023-06-05] MEDS: oxyCODONE 5 mg IR Tab/Cap PO (14:47)
--- NOTE | 2023-06-05 15:24 | P.DS_ITS ---
Discharge Providers Date of Admission: 06/02/23 19:51 Date of Discharge: June 05, 2023 Attending Provider at Admission: Cheryl Rod MD Attending Provider at Discharge: Chandler Spence MD Primary Care Provider: Akin Camilo DO Diagnoses at Discharge Discharge Diagnosis (1) Closed intertrochanteric fracture of left hip: Status: Acute Qualifiers: Encounter type: initial encounter Fracture alignment: displaced Qualified Code(s): S72.142A - Displaced intertrochanteric fracture of left femur, initial encounter for closed fracture (2) Subtrochanteric fracture of left femur: Status: Acute Qualifiers: Encounter type: initial encounter Fracture alignment: displaced Fracture type: closed Qualified Code(s): S72.22XA - Displaced subtrochanteric fracture of left femur, initial encounter for closed fracture Reason for Visit Reason for Visit: Fall Hospital Course Hospital Course Consuelo Barajas is a 63 year old female without significant past medical history sustaining a mechanical fall at home. Patient her and son, stating that today she is not sure what happened but endorsing tripping over carpet rug, in the ER she was diagnosed with hip fracture, Dr. Hussein consulted. Patient is not endorsing any history of coronary disease or CHF. She is not diabetic. Independent for daily activities. Patient is stating that her bone scan showed osteopenia but she does not take calcium or vitamin D, This is a 63-year-old female, who presents to [facility] for a left hip fracture, status post fall, status post surgical interventions, discharged home with home health care, wheeled walker, oxycodone to be used sparingly for pain control, follow-up with primary care provider For UTI, received inpatient Rocephin discharged on ciprofloxacin For patient's low blood pressures, and orthostatic hypotension, patient tells me that her blood pressure is always low, chronically low, for many years, here in the hospital she was orthostatic positive, patient would be talking to me with a systolic blood pressure in the 60s of diastolic over 40s, denies any lighthead edness or does report intermittent dizziness. She denies passing out, denies blacking out, but at times she does sometimes report dizziness, although intermittently. She was kept as inpatient received IV fluids for 24 hours which did not improve her orthostasis. Her hemoglobin did drop to 7.8 no bloody or black stools, does have slight evidence of iron deficiency, CT abdomen pelvis did not show any evidence of retroperitoneal bleed, and she denies any bloody or black stools. Nonetheless I have discharged her on Protonix, Carafate with a close follow-up with primary care provider to recheck her hemoglobin in 1 week, if she remains anemic consider referral for EGD and colonoscopy. In terms of her orthostasis her chronically low blood pressure, I think that they are likely secondary to adrenal insufficiency as her cortisol levels was 1.96, 4.41, which is on the lower end. Discussed with patient in detail about adrenal insufficiency, primary versus secondary. I am going to have her follow-up with Dr. Holder for a ACTH stimulation test, to formally diagnose her with adrenal insufficiency. Nonetheless I discharged her on midodrine 5 mg 3 times daily. And also advised her to liberalize her salt intake. If she does feel lightheaded or dizzy, we went over detailed instructions for how she can circumvent this, for her to slowly ambulate with care, get up from a seated position with care, and if she does have falls significant trauma to go to the emergency room Given that she is 63 she had a hip fracture, follow-up with primary care physician for discussion of starting Fosamax Physical Exam Const: COMMON NORMALS: no acute distress and patient oriented x3 Resp: COMMON NORMALS: normal respiratory effort, No retractions, No use of accessory muscles and clear to auscultation bilaterally AUSCULTATION: clear to auscultation bilaterally Cardio: COMMON NORMALS: regular rate, regular rhythm, S1 normal heart sound present and S2 normal heart sound present RATE: regular rate RHYTHM: regular rhythm HEART SOUNDS: S1 normal heart sound present and S2 normal heart sound present GI: COMMON NORMALS: Normal to inspection, nondistended, normoactive bowel sounds present and non-tender Extremity: COMMON NORMALS: no pedal edema Neuro: COMMON NORMALS: patient oriented x3 Psych: COMMON NORMALS: mental status grossly normal Urinary Catheter Management: Palmer: Cath Placed During This Visit: yes, but has since been removed by the nurse Reason for Continuing Indwelling Catheter: Decision to DC Catheter Urinary Catheter Date of Insertion: 06/02/23 Urinary Catheter Time of Insertion: 23:30 Date Urinary Catheter Removed: 06/05/23 Time Urinary Catheter Discontinued: 10:57 Discharge Data Studies Completed and Pending Completed Studies During Hospitalization Category Date Time Status CT abdomen pelvis wo con [id number] Stat Cat Scan 06/05/23 13:32 Completed XR chest 1V portable [id number] Stat Exams 06/02/23 18:36 Completed XR hip LT 1V wo/w pel [id number] Routine Exams 06/03/23 00:00 Completed XR hip LT 2-3V wo/w pel* [id number] Stat Exams 06/02/23 18:18 Completed Pending at discharge Category Date Time Status Complete Blood Count w/Auto AM LABS Lab 06/06/23 04:00 Ordered Comprehensive Metabolic Panel AM LABS Lab 06/06/23 04:00 Ordered Comprehensive Metabolic Panel AM LABS Lab 06/07/23 04:00 Ordered Lactic Sepsis W/Reflex Stat Lab 06/05/23 13:32 Ordered Occult Blood Stool [Immunochemical Fecal OCB] Routine Lab 06/04/23 12:00 Uncollected Radiology Impressions Hip/Pelvis X-Ray 06/02/23 18:18 IMPRESSION: Comminuted overlapping and angulated intratrochanteric fracture of the left femur. Chest X-Ray 06/02/23 18:36 IMPRESSION: No acute findings. Abdomen/Pelvis CT 06/05/23 13:32 IMPRESSION: 1. No evidence of retroperitoneal hemorrhage as clinically questioned. 2. Features of recent right proximal hip fracture fixation within normal limits. 3. Trace bilateral pleural effusions and ascites and other minor findings described above. COMMENTS: Consistent with the [employer] [place] [employer]'s Incidental Findings Committee white paper (J Am Candace Radiol 2018): Any incidental renal lesion less than 1 cm or classified as too small to characterize, or any incidental cystic renal lesion characterized as simple-appearing, is likely benign. No follow-up imaging is recommended for these lesions per consensus recommendations based on imaging criteria. Laboratory Results WBC 8.49 10^3/uL (3.29-11.43) 06/05/23 12:12 RBC 2.81 10^6/uL (3.85-5.65) L 06/05/23 12:12 Hgb 8.50 g/dL (11.27-16.99) L 06/05/23 12:12 Hct 26.7 % (36-47) L 06/05/23 12:12 MCV 95.0 fl (85-98) 06/05/23 12:12 MCH 30.2 pg (27-33) 06/05/23 12:12 MCHC 31.8 g/dL (30-55) 06/05/23 12:12 RDW 12.3 % (12.1-15.1) 06/05/23 12:12 Plt Count 157 10^3/cmm (157-399) 06/05/23 12:12 MPV 9.8 fL (7.4-10.4) 06/05/23 12:12 Neut % (Auto) 76.4 % 06/05/23 12:12 Lymph % (Auto) 11.5 % 06/05/23 12:12 [place] % (Auto) 8.4 % 06/05/23 12:12 Eos % (Auto) 2.9 % 06/05/23 12:12 Baso % (Auto) 0.4 % 06/05/23 12:12 Neut # (Auto) 6.49 10^3/uL (1.8-7.7) 06/05/23 12:12 Lymph # (Auto) 1.0 10^3/uL (0.8-4.8) 06/05/23 12:12 [place] # (Auto) 0.7 10^3/uL (0.2-0.9) 06/05/23 12:12 Eos # (Auto) 0.3 10^3/uL (0.0-0.8) 06/05/23 12:12 Baso # (Auto) 0.0 10^3/uL (0.0-0.1) 06/05/23 12:12 Nucleated RBC % (auto) 0 % 06/05/23 12:12 Nucleated RBCs # 0.0 /100WBC 06/05/23 12:12 PT 13.70 SECONDS (12.1-14.9) 06/02/23 19:08 INR 1.01 (0.8-1.2) 06/02/23 19:08 Sodium 142 mmol/L (136-145) 06/05/23 05:10 Potassium 3.8 mmol/L (3.5-5.1) 06/05/23 05:10 Chloride 110 mmol/L (98-107) H 06/05/23 05:10 Carbon Dioxide 26 mmol/L (22-29) 06/05/23 05:10 Anion Gap 9.8 (5-19) 06/05/23 05:10 BUN 9 mg/dL (8-23) 06/05/23 05:10 Creatinine 0.4 mg/dL (0.5-0.9) L 06/05/23 05:10 GFR Calculation 160.2 mL/min (90-130) H 06/05/23 05:10 Glucose 90 mg/dL (65-115) 06/05/23 05:10 Calculated Osmolality 292 mOsm/kg (285-295) 06/05/23 05:10 Lactic Acid 1.0 mmol/L (0.5-2.2) 06/04/23 14:55 Calcium 8.1 mg/dL (8.5-10.5) L 06/05/23 05:10 Phosphorus 3.1 mg/dL (2.5-4.5) 06/03/23 04:39 Magnesium 2.0 mg/dL (1.7-2.3) 06/03/23 04:39 Iron 23 ug/dL (37-145) L 06/04/23 14:55 Ferritin 518 ng/mL (15-150) H 06/04/23 14:55 Total Bilirubin 0.3 mg/dL (0.15-1.2) 06/05/23 05:10 AST 14 U/L (0-32) 06/05/23 05:10 ALT < 5 U/L (0-33) 06/05/23 05:10 Alkaline Phosphatase 51 U/L (35-105) 06/05/23 05:10 Troponin T Baseline < 6 ng/L (0-10) 06/04/23 14:55 Troponin T 120 Minute 6.00 ng/L (0-10) 06/04/23 17:31 Delta Troponin T 0.01642 ABS# (0-10) 06/04/23 17:31 Troponin T Hi Sens 6Hr 6.51 ng/L (0-10) 06/04/23 21:47 Troponin T Hi Sens 6Hr Delta 0.38876 ng/L (0-12) 06/04/23 21:47 C-Reactive Protein 82.3 mg/L (0.0-4.9) H 06/04/23 14:55 Total Protein 4.9 g/dL (6.6-8.7) L 06/05/23 05:10 Albumin 2.8 g/dL (3.5-5.2) L 06/05/23 05:10 Globulin 2.1 g/dL (1.3-4.6) 06/05/23 05:10 Vitamin B12 256 pg/mL (232-1245) 06/02/23 19:08 Procalcitonin 0.09 ng/mL (0-0.5) 06/04/23 14:55 TSH 2.18 uIU/mL (0.27-4.20) 06/02/23 19:08 Random Cortisol 4.41 ug/dL (2.47-19.5) 06/05/23 05:10 Urine Color Yellow (Yellow) 06/03/23 05:58 Urine Appearance Hazy (CLEAR) A 06/03/23 05:58 Urine pH 6 (5-7) 06/03/23 05:58 Ur Specific [place] 1.025 (1.005-1.030) 06/03/23 05:58 Urine Protein 1+ (Negative) H 06/03/23 05:58 Urine Glucose (UA) Norm (Normal) 06/03/23 05:58 Urine Ketones Negative (Negative) 06/03/23 05:58 Urine Blood 3+ (Negative) H 06/03/23 05:58 Urine Nitrate Negative (Negative) 06/03/23 05:58 Urine Bilirubin 1+ (Negative) H 06/03/23 05:58 Prot Sulfosalicylic Acd Cancelled 06/02/23 05:58 Urine Urobilinogen 1 mg/dL (Negative) H 06/03/23 05:58 Ur Leukocyte Esterase 2+ (Negative) H 06/03/23 05:58 Urine RBC 5-10 /hpf (0-2) H 06/03/23 05:58 Urine WBC 25-40 /hpf (0-5) H 06/03/23 05:58 Ur Squamous Epith Cells 5-10 /hpf (0-5) H 06/03/23 05:58 Ur Transition Epith Cell 0-4 /hpf 06/03/23 05:58 Amorphous Sediment Not Reportable 06/03/23 05:58 Urine Bacteria Trace /hpf (NONE) 06/03/23 05:58 Urine Mucus Trace /hpf 06/03/23 05:58 Vitals Last Vital Signs Temp 98.3 F 06/05/23 12:00 Pulse 91 06/05/23 12:00 Resp 16 06/05/23 14:47 BP 92/59 06/05/23 12:00 Pulse Ox 94 06/05/23 12:00 O2 Del Method Room Air 06/05/23 12:00 Discharge Plan Discharge Patient Disposition: Home Health Service Condition: Stable Prescriptions: New oxycodone 5 mg Tablet 5 mg PO Q8H PRN (Reason: Moderate Pain) 7 Days Qty: 21 0RF midodrine 5 mg Tablet 5 mg PO Q8H 30 Days Qty: 90 0RF ciprofloxacin HCl [Cipro] 250 mg tablet 250 mg PO BID 3 Days Qty: 6 0RF sucralfate [Carafate] 1 gram tablet 1 g PO BID 14 Days Qty: 28 0RF acetaminophen 500 mg Tablet 500 mg PO Q4H PRN (Reason: fever) 15 Days Qty: 0 0RF aspirin 325 mg Tablet,Delayed Release (Dr/Ec) 325 mg PO DAILY 30 Days Qty: 0 0RF pantoprazole [Protonix] 40 mg tablet,delayed release (DR/EC) 40 mg PO BID 14 Days Qty: 28 0RF Continued omega-3 fatty acids 1,000 mg capsule 1,000 mg PO DAILY ascorbic acid (vitamin C) 500 mg capsule 1,000 mg PO 1XD Prempro 0.625-2.5 mg tablet 1 tab PO DAILY tramadol 50 mg tablet 50 mg PO BID PRN (Reason: pain) Qty: 60 5RF Held methenamine hippurate 1 gram tablet 1 g PO 1XD Hold Instructions: Resume on 06/12/23. Rx Instructions: take one TABLET BY MOUTH TWICE DAILY * take 1000mg of vitamin c with each DOSE of methenamine * Discharge Orders: Discharge Order (Routine); Ordered 06/05/23 Ordered By: Tere Bassett Other Ambulatory Orders: DME: Patrick (Order) Location: None Selected Ordered By: Chandler Spence Referrals: [facility] ([facility]) [Outside] Akin Camilo DO [Primary Care Provider] - 06/11/23 10:00 am Claudio Lunsford MD [Physician] - 1 month Tere Bassett MD [Physician] - 3 weeks (We have notified your physician's clinic of the need for a follow-up appointment to be scheduled. If you have not heard from them within the next 2 business days, please call them directly. ) Shoshana Holder MD [Physician] - 1 week (adrenal insufficiency) Discharge Activity: Increase activity as tolerated, Limit activity as instructed, Use walker/crutches as instructed and As per PT/OT instructions Patient Instructions: Opioid Safety Activity Restrictions/Additional Instructions: Maintain current dressings. You may weight-bear as tolerated. You may shower, but do not soak your hip. Ice to hip as needed. -Please use oxycodone sparingly for pain, please do not use with tramadol, do not drive or operate machinery or drink while taking medication -For your UTI continue ciprofloxacin for your anemia, hemoglobin at discharge was 8 point - for your anemia, hemoglobin 8.5, continue to monitor closely, have your primary care recheck your hemoglobin in 1 week ? For your low blood pressures, orthostatic hypotension, drink plenty electrolyte balanced fluids, increase salt in your diet for now, monitor your blood pressures closely at discharge on midodrine 5 mg p.o. 3 times daily which will increase your blood pressure, please follow-up with primary care provider in 1 week ? For concerns for adrenal insufficiency, please follow-up with Dr. Holder ? Given your anemia, please hold off on using any type of NSAIDs, have discharged on Protonix and Carafate for GI protection, follow-up with primary care provider in 1 week, if you remain anemic, referral has been sent for follow-up with general surgery for consideration of EGD and colonoscopy in a month Discharge Attestations Time Spent in Discharge Care*: greater than 30 min Quality Metrics Clinical Quality Measures [ No reported AMI, CVA or VTE this stay] Coding Level of Care Code 03293 Total time (in minutes) for Discharge: 45 Diagnoses Closed displaced intertrochanteric fracture of left femur, initial encounter S72.142A Encounter type: initial encounter Fracture alignment: displaced Closed displaced subtrochanteric fracture of left femur, initial encounter S72.22XA Encounter type: initial encounter Fracture alignment: displaced Fracture type: closed
[2023-06-05 16:00] VITALS: BP 112/66; PULSE 86; TEMP 36.9; O2SAT 99
== END 2023-06-05 17:25 | disposition home health service (06) | DRG 481 ==
LOC: ER 19:14 → MEDSURG 19:51
PROVIDERS: Nurse Practitioner; Specialist; Admitting Provider Internal Medicine; Emergency Provider Emergency Medicine; PCP Family Medicine; Visit Provider Family Medicine
PROC: 0QS736Z Reposition Left Upper Femur with Intramedullary Internal Fixation Device, Percutaneous Approach (ICD-10-PCS; CPT 27245; principal; 2023-06-03 14:35)
DX: S72.142A Displaced intertrochanteric fracture of left femur, initial encounter for closed fracture (principal); E27.40 Unspecified adrenocortical insufficiency; N39.0 Urinary tract infection, site not specified; S72.22XA Displaced subtrochanteric fracture of left femur, initial encounter for closed fracture; W01.0XXA Fall on same level from slipping, tripping and stumbling without subsequent striking against object, initial encounter; I95.1 Orthostatic hypotension; D64.89 Other specified anemias
CPT/HCPCS: 36415; 51702; 71045; 73501; 73502; 74176; 76000; 80048; 80053; 81001; 82533; 82607; 82728; 83540; 83605; 83735; 84100; 84145; 84443; 84484; 85025; 85610; 86140; 87086; 93005; 96372; 96374; 96375; 96376; 97110; 97116; 97161; 97166; 97530; 99285; C1713; C1776; J0131; J0690; J0696; J1100; J1170; J1650; J2405; J2704; J3010; J3490; J7030

== ENCOUNTER → 2023-06-24 13:05 | Outpatient (BNVA) | payer MEDICARE, OTHER, SELFPAY | PROVIDERS: PCP Family Medicine; Visit Provider Specialist | DX: S72.142D Displaced intertrochanteric fracture of left femur, subsequent encounter for closed fracture with routine healing; S72.22XD Displaced subtrochanteric fracture of left femur, subsequent encounter for closed fracture with routine healing; X58.XXXD Exposure to other specified factors, subsequent encounter | CPT/HCPCS: 73502; 99024 ==

== ENCOUNTER → 2023-08-17 10:16 | Outpatient (BNVA) | payer MEDICARE, OTHER, SELFPAY | PROVIDERS: PCP Family Medicine; Visit Provider Specialist | DX: S72.142D Displaced intertrochanteric fracture of left femur, subsequent encounter for closed fracture with routine healing; S72.22XD Displaced subtrochanteric fracture of left femur, subsequent encounter for closed fracture with routine healing; X58.XXXD Exposure to other specified factors, subsequent encounter | CPT/HCPCS: 73502; 99024 ==

== ENCOUNTER 2023-09-01 09:39 | Outpatient (RCR) | payer MEDICARE, OTHER, SELFPAY | END 2023-09-06 23:59 | disposition home or self-care (01) | LOC: SPT 09:39 | PROVIDERS: PCP Family Medicine; Visit Provider Specialist | DX: M54.50 Low back pain, unspecified (principal); M25.552 Pain in left hip | CPT/HCPCS: 97110; 97161 ==

== ENCOUNTER 2023-09-07 06:00 | Outpatient (RCR) | payer MEDICARE, OTHER, SELFPAY | END 2023-10-07 23:59 | disposition home or self-care (01) | LOC: SPT 06:00 | PROVIDERS: PCP Family Medicine; Visit Provider Specialist | DX: M54.50 Low back pain, unspecified (principal); M25.552 Pain in left hip | CPT/HCPCS: 97110 ==

== ENCOUNTER → 2023-10-07 13:15 | Outpatient (BNVA) | payer MEDICARE, OTHER, SELFPAY | PROVIDERS: PCP Family Medicine; Visit Provider Family Medicine | DX: N39.0 Urinary tract infection, site not specified (principal); E78.5 Hyperlipidemia, unspecified; D64.9 Anemia, unspecified; I95.1 Orthostatic hypotension; R79.89 Other specified abnormal findings of blood chemistry | CPT/HCPCS: 80048; 81000; 82607; 82728; 82746; 83540; 85025 ==

== ENCOUNTER 2023-10-08 06:00 | Outpatient (RCR) | payer MEDICARE, OTHER, SELFPAY | END 2023-11-07 23:59 | disposition home or self-care (01) | LOC: SPT 06:00 | PROVIDERS: PCP Family Medicine; Visit Provider Specialist | DX: M54.50 Low back pain, unspecified (principal); M25.552 Pain in left hip | CPT/HCPCS: 97110 ==

== ENCOUNTER → 2023-11-03 10:49 | Outpatient (BNVA) | payer MEDICARE, OTHER, SELFPAY | PROVIDERS: PCP Family Medicine; Visit Provider Nurse Practitioner | DX: R39.9 Unspecified symptoms and signs involving the genitourinary system (principal) | CPT/HCPCS: 81000 ==

== ENCOUNTER 2023-11-08 06:00 | Outpatient (RCR) | payer MEDICARE, OTHER, SELFPAY | END 2023-12-07 23:59 | disposition home or self-care (01) | LOC: SPT 06:00 | PROVIDERS: PCP Family Medicine; Visit Provider Specialist | DX: M54.50 Low back pain, unspecified (principal); M25.552 Pain in left hip | CPT/HCPCS: 97110 ==

== ENCOUNTER → 2023-11-18 10:24 | Outpatient (BNVA) | payer MEDICARE, OTHER, SELFPAY | PROVIDERS: PCP Family Medicine; Visit Provider Nurse Practitioner | DX: S72.22XD Displaced subtrochanteric fracture of left femur, subsequent encounter for closed fracture with routine healing (principal); X58.XXXD Exposure to other specified factors, subsequent encounter | CPT/HCPCS: 73502; 99213 ==

== ENCOUNTER → 2023-12-13 15:59 | Outpatient (BNVA) | payer MEDICARE, OTHER, SELFPAY | PROVIDERS: PCP Family Medicine; Visit Provider Nurse Practitioner | DX: R39.9 Unspecified symptoms and signs involving the genitourinary system (principal) | CPT/HCPCS: 81000; 87086 ==

== ENCOUNTER → 2023-12-20 15:07 | Outpatient (BNVA) | payer MEDICARE, OTHER, SELFPAY | PROVIDERS: PCP Family Medicine; Visit Provider Registered Nurse Neonatal Intensive Care | DX: N39.0 Urinary tract infection, site not specified (principal) | CPT/HCPCS: 81000; 87086 ==

== ENCOUNTER → 2024-02-05 14:12 | Outpatient (BNVA) | payer MEDICARE, OTHER, SELFPAY | PROVIDERS: PCP Family Medicine; Visit Provider Nurse Practitioner | DX: R39.9 Unspecified symptoms and signs involving the genitourinary system (principal) | CPT/HCPCS: 81000 ==

== ENCOUNTER → 2024-02-15 15:00 | Outpatient (BNVA) | payer MEDICARE, OTHER, SELFPAY | PROVIDERS: PCP Family Medicine; Visit Provider Family Medicine | DX: N39.0 Urinary tract infection, site not specified (principal); E55.9 Vitamin D deficiency, unspecified; E78.5 Hyperlipidemia, unspecified; D50.9 Iron deficiency anemia, unspecified; R79.89 Other specified abnormal findings of blood chemistry | CPT/HCPCS: 80053; 80061; 82306; 82607; 84443; 85027 ==

== ENCOUNTER → 2024-05-16 10:22 | Outpatient (BNVA) | payer MEDICARE, OTHER, SELFPAY | PROVIDERS: PCP Family Medicine; Visit Provider Nurse Practitioner | DX: S72.22XD Displaced subtrochanteric fracture of left femur, subsequent encounter for closed fracture with routine healing (principal); X58.XXXD Exposure to other specified factors, subsequent encounter | CPT/HCPCS: 73502; 99213 ==

== ENCOUNTER → 2024-08-19 10:34 | Outpatient (BNVA) | payer MEDICARE, OTHER, SELFPAY | PROVIDERS: PCP Family Medicine; Visit Provider Nurse Practitioner | DX: Z98.890 Other specified postprocedural states (principal) | CPT/HCPCS: 99213 ==